=== PATIENT | male | born 1960 | race Caucasian/White ===

== ENCOUNTER 2018-12-14 19:42 | Inpatient (IN) ==
[2018-12-14] MEDS ORDERED: DEBROX OTIC DROPS RIGHT EAR ONE (19:54)
[2018-12-14] MEDS ORDERED: APRESOLINE IV ONE (20:13)
[2018-12-14] MEDS ORDERED: VANCOMYCIN 1 GM/NS 1 GM/250 ML IVPB IV ONE (20:20)
[2018-12-14] MEDS ORDERED: ROCEPHIN 1 GM in NS 50 ML IV ONE (20:20)
--- NOTE | 2018-12-14 20:27 | Diag Imaging Result Doc PS360 ---
EXAM: CHEST-2 VIEWS 12/14/2018 HISTORY: sepsis TECHNIQUE: PA and lateral chest COMMENT: There are no previous studies. There are platelike opacities in the right middle lobe and left lower lobe. The heart size is at the upper limits of normal. IMPRESSION: Bilateral atelectasis. Electronically signed by Robby Sosa 12/14/2018 8:24 PM
[2018-12-14 21:02] LABS: BASO# 0.03 X1000 (0.0-0.2); BASO% 0.2 % (0.0-0.8); EOS# 0.22 X1000 (0.0-0.7); EOS% 1.2 % (0.0-10.0); HEMATOCRIT 24.2 % (42.0-52.0); HEMOGLOBIN 8.1 g/dL (14.0-18.0); IMM GRAN# 0.07 X1000 (0.0-0.04); IMM GRAN% 0.4 % (0.0-0.5); LYMPH# 2.88 X1000 (1.2-3.4); LYMPH% 15.4 % (20.5-51.1); MCH 32.1 PG (27-31); MCHC 33.5 g/dL (33-37); MPV 11.2 FL (7.4-10.4); NEUT# 14.04 X1000 (1.4-6.5); NEUT% 74.8 % (42.2-75.2); PLT 243 X1000 (130-400); RBC 2.52 XMIL (4.7-6.1); RDW 12.1 % (11.5-14.5); WBC 18.74 X1000 (4.8-10.8)
[2018-12-14] MEDS ORDERED: OFIRMEV 1000 MG/ISOTONIC SOLN 1,000 MG/100 ML BOTTLE IV ONE (21:03)
--- NOTE | 2018-12-14 21:12 | Diag Imaging Result Doc PS360 ---
EXAM: CT ABDOMEN/PELVIS W/O CONTRAST 12/14/2018 HISTORY: Bloodyperitoneal fluid afterintrabdominal procedur TECHNIQUE: This exam was performed using automated exposure control, adjustment of mA or kV according to patient size, and/or use of iterative reconstruction technique. COMMENT: There are no previous studies available for comparison. There are calcifications in the left anterior descending and circumflex coronary arteries. There is platelike opacity in the right middle lobe and the left lower lobe consistent with atelectasis. The spleen is not enlarged. There is massive retroperitoneal and mesenteric adenopathy, some nodes exceeding 3 cm in size. There are numerous surgical clips in the retroperitoneum from the level of the celiac artery caudally to below the kidneys. There is a peritoneal dialysis catheter present in the right anterior pelvis. There is a mesh in the anterior abdominal wall at the level of the umbilicus. There is no evidence of bowel obstruction. There is a mass in the mesentery to the right side of the midline on image 91 which contains some gas and apparent fluid. This measures at least 6.6 cm in diameter. The possibility of an abscess cannot be excluded, however it is possible this is simply due to necrosis. There is a large cyst in the upper pole of the left kidney. There is atrophy anteriorly in the right kidney lower pole. There is no evidence of hydronephrosis or stones. There are stones in the gallbladder. There is no evidence of acute bony disease. IMPRESSION: Adenopathy as described. Necrotic versus suppurated mesenteric latasha mass. Electronically signed by Robby Sosa 12/14/2018 9:09 PM
[2018-12-14 21:26] LABS: URINE SOURCE CLEAN CATCH
[2018-12-14 21:38] LABS: BODY FLUID SOURCE PERITONEAL FLUID; WBC BF 7678 /cumm
[2018-12-14 21:39] LABS: MONOS 16 %; POLYS 84 %
[2018-12-14 21:39] LABS: ALB/GLOB RATIO 1.2; ALBUMIN 3.2 g/dL (3.5-5.0); CALCIUM 9.8 mg/dL (8.8-10.2); CREATININE 9.2 mg/dL (0.7-1.2); POTASSIUM 4.9 mmol/L (3.5-5.1); TOTAL BILIRUBIN 0.27 mg/dL (0.20-1.00); TOTAL PROTEIN 5.8 g/dL (6.3-8.3)
[2018-12-14 21:51] LABS: BILIRUBIN URINE NEGATIVE (NEGATIVE); BLOOD URINE MODERATE (NEGATIVE); COLOR YELLOW; GLUCOSE URINE 500 mg/dL (NEGATIVE); KETONE URINE NEGATIVE (NEGATIVE); LEUKOCYTES URINE NEGATIVE (NEGATIVE); NITRITE URINE NEGATIVE (NEGATIVE); PH URINE 6.5; PROTEIN URINE 300 mg/dL (NEGATIVE); SP GRAVITY URINE 1.006; TURBIDITY URINE CLEAR (CLEAR); UROBILINOGEN URINE NORMAL (NORMAL)
[2018-12-14 21:52] LABS: UR EPITHELIAL CELLS <10 /HPF (<10); URINE BACTERIA NEGATIVE /HPF; URINE RBC <10 /HPF (<10); URINE WBC <10 /HPF (<10)
[2018-12-14] MEDS ORDERED: DILAUDID IV ONE (22:05)
[2018-12-14] MEDS ORDERED: ZOFRAN IV ONE (22:06)
--- NOTE | 2018-12-14 22:32 | PROVIDER DOCUMENTATION ---
This chart was entered by Heather Tipton Scribe, acting as scribe for Ben Moctezuma MD. HPI-General Adult - General Chief Complaint: Abdominal Pain Stated Complaint: FEVER Time Seen by Provider: 12/14/18 19:55 Source: patient Allergies/Adverse Reactions: Patient Allergies Allergy/AdvReac Type Severity Reaction Status Date / Time levofloxacin [From Levaquin] Allergy RASH Verified 12/14/18 19:50 Penicillins Allergy RASH Verified 12/14/18 19:50 tramadol AdvReac NAUSEA/VOMI Verified 12/14/18 19:50 TING Home Medications: Home Medication List Medication Instructions Recorded Confirmed Last Taken Type ATORVAstatin [Lipitor] 20 mg PO HS 12/24/17 12/14/18 12/26/17 22:00 History 20 Amlodipine [Norvasc] 10 mg PO DAILY 12/24/17 12/14/18 12/27/17 06:00 History 10 Carvedilol 6.25 mg PO BID 12/24/17 12/14/18 12/27/17 06:00 History 6.25 Fenofibrate [Tricor] 145 mg PO DAILY 12/24/17 12/14/18 12/26/17 05:00 History 145 Furosemide [Lasix] 40 mg PO BID 12/24/17 12/14/18 12/26/17 05:00 History 40 Insulin Aspart [Novolog] 0 unit SQ DIRECTED 12/24/17 12/14/18 Unknown History Modafinil 2 tab PO QAM 12/24/17 12/14/18 12/26/17 05:00 History 2 Omeprazole 20 mg PO HS 12/24/17 12/14/18 12/26/17 22:00 History Subcutaneous Insulin Pump [Insulin 1 each MC DAILY 12/24/17 12/14/18 Unknown History Pump] TRANDOLApril [Mavik] 4 mg PO DAILY 12/24/17 12/14/18 Unknown History Hydrocodone/APAP 10 mg/325 mg 1 ea PO Q6H PRN PRN #20 tab 12/27/17 12/14/18 Unknown Rx [[place]-10] Armodafinil 250 mg PO DAILY 12/14/18 12/14/18 Unknown History Calcitriol 0.5 mcg PO DAILY 12/14/18 12/14/18 Unknown History Cinacalcet HCl [Sensipar] 1 tab PO DAILY 12/14/18 12/14/18 Unknown History Ferric Citrate [Auryxia] 210 mg PO AC 12/14/18 12/14/18 Unknown History Losartan Potassium 100 mg PO DAILY 12/14/18 12/14/18 Unknown History Magnesium Oxide 400 mg PO DAILY 12/14/18 12/14/18 Unknown History Ondansetron [Ondansetron Odt] 4 mg PO PRN PRN 12/14/18 12/14/18 Unknown History - History of Present Illness -Gen Adult Nature of Presenting Problems: Pt is 58/M perotoneal dialysis pt presenting to the ED w/ fever, lower back pain that is more on the R side and some nausea. Pt sts that last Saturday he had a needle guided biopsy and has been draining blood out of perotoneal fluid. Pt sees Dr. Kimble for treatments. hx of IDDM, HTN, Renal failure, testicular cancer Location of Pain/Injury: reports: back (lower back, R sided predominantly) Pain Radiation: reports: no radiation Quality of Pain: reports: dull Severity: reports: moderate Onset/Duration: reports: gradual Timing: reports: still present, getting worse Context/Activities at Onset: reports: none Modifying Factors: improves with: nothing Associated Symptoms: reports: cough, fever/chills, nausea. denies: shortness of breath, vomiting Similar Symptoms Previously?: No Recently seen or treated by another doctor?: No Review of Systems - Adult - REVIEW OF SYSTEMS - ADULT Constitutional: reports: fever (100.5) Eyes: reports: no symptoms reported Ears, Nose, Mouth & Throat: reports: no symptoms reported Cardiovascular: reports: no symptoms reported. denies: chest pain Respiratory: reports: cough Gastrointestinal: reports: nausea. denies: abdominal pain, diarrhea, vomiting Musculoskeletal: reports: back pain Integumentary: reports: no symptoms reported Neurological: reports: no symptoms reported. denies: dizziness/vertigo, headache/migraines Psychiatric: reports: no symptoms reported Hematologic/Lymphatic: reports: no symptoms reported Allergic/Immunologic: reports: no symptoms reported All Other Systems: Reviewed and Negative Past History - Adult - PAST MEDICAL HISTORY-ADULT Review of Records: reports: Old Records Reviewed, Nursing Assessment Review, Medications Reviewed, Social history reviewed & non-contributory. Cardiovascular: reports: HTN Respiratory: reports: cancer Gastrointestinal: reports: denies history Genitourinary: reports: cancer (testicular cancer at age 18) Musculoskeletal: reports: denies history Neurological: reports: denies history Psychiatric: reports: denies history Endocrine/Immune: reports: Diabetes (insulin pump) Diabetes controlled by:: Insulin Dependent (insulin pump) Other Conditions: reports: denies history - SOCIAL HISTORY Smoking: denies, non-smoker Substance Use: none/never Alcohol Use Frequency: once a month Living Situation: family Physical Exam-General - PHYSICAL EXAM-ADULT Initial Vital Signs Reviewed: Yes - CONSTITUTIONAL General Appearance: appears well, alert, no apparent distress, other (pale) - EYES Eyes: PERRL/EOMI, pink conjunctivae - HEAD, EARS, NOSE, MOUTH & THROAT HENMT: normocephalic/atraumatic, moist mucous membranes, normal ENT inspection, TMs normal, pharynx normal - NECK Neck: non-tender, full range of motion, supple, normal inspection - RESPIRATORY Respiratory: chest non-tender, lungs clear, normal breath sounds - CARDIOVASCULAR Cardiovascular: regular rate, rhythm - GASTROINTESTINAL (ABDOMEN) Abdominal Exam: normal bowel sounds, distended (slightly), tenderness (tender to palpation only around site of dialysis tubing) - MUSCULOSKELETAL Back Exam: normal inspection, no CVA tenderness, no vertebral tenderness Extremity: normal range of motion, non-tender, normal gait, normal inspection - SKIN Integumentary: normal color, warm/dry - NEUROLOGIC Neurologic: grossly normal - PSYCHIATRIC Psych/Mental Status: normal mood/affect, normal thought content, normal thought process, oriented x 3 Progress - PLAN OF CARE/RESULTS Progress/Plan/Lab Results: Vital Signs - 8 hr 12/14/18 19:45 Temperature 100.5 F H Pulse Rate 95 H Respiratory Rate 20 Blood Pressure 179/74 O2 Sat by Pulse Oximetry 96 Orders Category Date Time Status cxr [CHEST-2 VIEWS] [RAD] Stat Exams 12/14/18 20:13 Ordered BLOOD CULTURE [BLDCUL] Stat Lab 12/14/18 20:12 Uncollected CBC WITH ELECTRONIC DIFF [HEME] Stat Lab 12/14/18 20:12 Uncollected CMP [COMPREHENSIVE METABOLIC PANEL] [CHEM] Stat Lab 12/14/18 20:12 Uncollected LACTATE, PLASMA [CHEM] Stat Lab 12/14/18 20:12 Uncollected Result Diagrams: 12/14/18 20:32 12/14/18 20:32 - XRAY 1 XRAY: Bilateral XRAY Study: Chest Impression: Abnormal (IMPRESSION: Bilateral atelectasis. Electronically signed by Robby Sosa 12/14/2018 8:24 PM 12/14/182023 Interpreting Physician: Robby Sosa MD Dictated Date/Time: 12/14/182023) - CONSULTS/PCP/HOSPITALIST Notification #1 *Consult/PCP/Hospitalist*: Dr. Kimble Time Discussed: 20:15 Reason/Comments: admit to ED for vancomycin and rocephin IV Consult Disposition: Admit #2 Consult: Dr. Solomon Time Discussed: 22:31 Consult Disposition: Admit (Hx, PE and patient care discussed, accepted.) Departure - Departure Date of Disposition Decision: 12/14/18 Time of Disposition Decision: 22:29 DIAGNOSIS: Sepsis Qualifiers: Sepsis type: sepsis due to unspecified organism Qualified Code(s): A41.9 - Sepsis, unspecified organism Back pain Qualifiers: Back pain location: low back pain Chronicity: acute Back pain laterality: right Sciatica presence: without sciatica Qualified Code(s): M54.5 - Low back pain Disposition: ADMITTED INPATIENT 09 Certified Medical Emergency: Emergent Condition: Stable Referrals and Follow-Ups: Leo Chambers MD [Primary Care Provider] - - Critical Care Note This patient required my direct & personal management of CC.: No Attestation - Physician/ CAYDEN Attestation Patient care was provided by Advanced Practice Provider:: No The physician spent face to face time with patient:: Yes Advanced Practice Provider documentation review:: Supervising physician onsite and consulted in the evaluation and care of this patient. The physician did have a face to face encounter with the patient. This chart was documented by the indicated scribe, (Heather Tipton Scribe) and accurately reflects the services I performed and decisions made by me, Ben Blas MD, as attested by the provider's signature.
[2018-12-14] MEDS ORDERED: FLAGYL 500 MG/NS 500 MG/100 ML IVPB IV ONE (22:56)
[2018-12-15] MEDS ORDERED: ZOFRAN ODT PO PRN (00:05)
[2018-12-15] MEDS ORDERED: ZOFRAN IV PRN (00:05)
[2018-12-15] MEDS ORDERED: BASAGLAR SUBQ ONE (00:05)
[2018-12-15] MEDS ORDERED: VANCOMYCIN IV PER PHARMACY MISC SCH (00:05)
--- NOTE | 2018-12-15 00:17 | HISTORY AND PHYSICAL ---
TREATING PHYSICIAN: Arnulfo Chambers MD. PRIMARY CARE PHYSICIAN: Bernice Montanez MD. REASON FOR ADMISSION: A 5-day history of bloody peritoneal fluid. A 1-day history of fever and chills. HISTORY OF PRESENT ILLNESS: Mr. Naveed Agosto is a 58-year-old man with a past medical history of insulin-requiring diabetes with nephropathy, hyperlipidemia, hypertension, prior history of bladder cancer and testicular cancer. He underwent lymph node biopsy 5 or 6 days ago, and the pathology report showed that he was diagnosed with a lymphoma type unknown. He comes in today because since the day he has had this biopsy he has been having blood in his peritoneal dialysis catheter. The first day was the worst with 250 mL of bright red blood. Since then he has been having consistently blood-tinged peritoneal fluid. Today things got a little worse when he was having fever and chills, a temperature of 102, notable chills. Oddly enough he does not have any profound abdominal pain. The pain that he has is vague, 2/10, a dull achy pain around the peritoneal site, with no specific aggravating or relieving factors, it is constant. He also complains of pain about 4 cm below the lymph node biopsy insertion site, and that too is also the same quality low dull achy pain, nonradiating. He denies any diarrhea or altered bowel movements. No nausea or vomiting at this time. Denies any cardiorespiratory complaints other than a persistent nagging dry cough. He denies any shortness of breath or chest pain of an anginal type quality. No change in urinary habits. No PND or orthopnea. No leg swelling. No polyuria or polydipsia. No weight loss. REVIEW OF SYSTEMS: A 12 system review was done. Positive findings per HPI. No focal neurological deficits. No heat intolerance or tremors. ALLERGIES: Levaquin, penicillin, and tramadol. HOME MEDICATIONS: The patient is on amlodipine 10 mg daily, armodafinil, ferric citrate 210 mg q.a.c., calcitriol 0.5 mg daily, Coreg 6.25 mg b.i.d., insulin pump, Lasix 40 mg b.i.d., Lipitor 20 mg at bedtime, losartan 100 mg daily, magnesium oxide 400 mg daily, Mavik 4 mg daily, modafinil 400 mg a day q.a.m., NovoLog p.r.n. subcutaneous, omeprazole 20 mg at bedtime, Zofran 4 mg q4 prn Sensipar 1 tablet daily, Tricor 45 mg daily, hydrocodone 10 mg q.6 hours p.r.n. SURGICAL HISTORY: He has had radical retroperitoneal lymph node dissection relating to his testicular cancer, bladder cancer excision, right shoulder surgery. He has had a peritoneal dialysis catheter placed. FAMILY HISTORY: Breast cancer in her mother. Diabetes in brother. SOCIAL HISTORY: He does not smoke, drink, or use illicit drugs. and lives with . He works as a [employer]. LABORATORY DATA: White count 69709, H H 8 and 24. Platelets 243,000, with normal differential. BUN is 89, creatinine is. 9.2 glucose is 326, bicarbonate is 19, anion gap is 18, albumin is 3.2, lactate is normal. Urinalysis showed 300 protein, glucose 500, moderate blood. Gram stain showed 2+ white cells, no bacteria. Chest film bilateral atelectasis. The patient has been necrotic versus suppurative mesenteric latasha matted lymph nodes,and there are stones in the gallbladder. There is also calcifications of the coronary arteries. PHYSICAL EXAMINATION: VITAL SIGNS: Blood pressure is 140/78, heart rate is 95, respirations is 20, temperature is 100.5, O2 saturations is 92% on room air. GENERAL: Mr. Naveed Agosto is a 58-year-old male who is not in acute distress. He is A and O x3. Normal mood and affect. HEENT: Head is normocephalic and atraumatic. Eyes, YAW, EOMI. Anicteric mildly pale. Exam is grossly normal. NECK: Supple. No JVD or carotid bruit. No thyromegaly. No cervical, supraclavicular, or axillary lymph nodes. CHEST: Clear to auscultation. Good air entry both lung henry. CARDIOVASCULAR: First and second sounds heard. No gallops. ABDOMEN: Protuberant, soft. Mild diffuse tenderness most notably in the right lower quadrant an d right upper quadrant area, but no rebound or guarding. No mass or organomegaly. Bowel sounds are hypoactive. RECTAL: Deferred at this time. EXTREMITIES: The patient has slightly diminished pulses in distally lower extremities. Regular rhythm that is symmetrical. No clubbing or peripheral cyanosis. No edema. NEUROLOGICAL: No gross focal deficits. SKIN: Intact. No breakdown, lesion, erythema. Peritoneal tunneled catheter dialysis site is clean. No surrounding erythema or tenderness or expression of any exudative material. MUSCULOSKELETAL: Exam is grossly normal. ASSESSMENT: 1. Probable peritonitis. 2. Lymphoma type unknown. 3. End-stage kidney disease. 4. Type 2 diabetes with nephropathy. 5. Coronary artery disease. 6. Hypertension. 7. Hyperlipidemia. 8. Sleep apnea versus narcolepsy. PLAN: The patient will be admitted per Dr. Chambers's request. We will start the patient on broad- spectrum antibiotics to cover Staphylococcus gram-negative and anaerobes intra- abdominally. Treat the patient symptomatically as needed. For now hold off on insulin pump unless okayed by Dr. Chambers. Start the patient on sliding scale with or without long-acting insulin. The patient's blood pressure medications will be restarted. The patient does complain of protracted coughing but if symptoms persist I would recommend a noncontrast CT of the chest to rule out development of a pneumonia in which case antibiotics will need to be shifted and coverage for atypical antibiotics may need to be considered. cc: MD Leo Julio MD Laverne J. Hoover MTDD
[2018-12-15] MEDS: NORCO-10 PO PRN ×4 (02:01→22:47)
[2018-12-15] MEDS ORDERED: FLAGYL 500 MG/NS 500 MG/100 ML IVPB IV SCH (05:30)
[2018-12-15 06:43] LABS: BASO# 0.02 X1000 (0.0-0.2); BASO% 0.1 % (0.0-0.8); EOS# 0.14 X1000 (0.0-0.7); HEMATOCRIT 23.1 % (42.0-52.0); HEMOGLOBIN 7.7 g/dL (14.0-18.0); IMM GRAN# 0.06 X1000 (0.0-0.04); IMM GRAN% 0.4 % (0.0-0.5); LYMPH# 2.91 X1000 (1.2-3.4); LYMPH% 20.2 % (20.5-51.1); MCH 32.5 PG (27-31); MCHC 33.3 g/dL (33-37); MCV 97.5 FL (81-99); MONO# 0.83 X1000 (0.11-0.59); MONO% 5.8 % (1.7-9.3); MPV 10.8 FL (7.4-10.4); NEUT# 10.42 X1000 (1.4-6.5); NEUT% 72.5 % (42.2-75.2); PLT 220 X1000 (130-400); RBC 2.37 XMIL (4.7-6.1); RDW 12.1 % (11.5-14.5); WBC 14.38 X1000 (4.8-10.8)
[2018-12-15] MEDS: HUMALOG SUBQ SCH ×4 (06:51→22:48)
[2018-12-15] MEDS ORDERED: NON-FORMULARY MED (Ferric Citrate [Auryxia] 210 MG) PO SCH (07:00)
[2018-12-15 07:21] LABS: ALB/GLOB RATIO 0.8; ALBUMIN 2.9 g/dL (3.5-5.0); CALCIUM 9.4 mg/dL (8.8-10.2); CREATININE 9.3 mg/dL (0.7-1.2); MAGNESIUM 1.8 mg/dL (1.5-2.7); POTASSIUM 4.9 mmol/L (3.5-5.1); TOTAL BILIRUBIN 0.23 mg/dL (0.20-1.00); TOTAL PROTEIN 6.4 g/dL (6.3-8.3)
[2018-12-15] MEDS: NORVASC PO SCH ×2 (07:54→09:10)
[2018-12-15] MEDS: TESSALON PO SCH ×4 (07:54→21:19)
[2018-12-15] MEDS: MAG-OX PO SCH ×2 (07:54→09:12)
[2018-12-15] MEDS: COREG PO SCH ×3 (07:55→21:19)
[2018-12-15] MEDS: LASIX PO SCH ×3 (07:55→21:19)
[2018-12-15] MEDS: COZAAR PO SCH ×2 (07:55→09:11)
[2018-12-15] MEDS ORDERED: MODAFINIL PO SCH (09:00)
[2018-12-15] MEDS ORDERED: ARMODAFINIL 250 MG PO SCH (09:00)
[2018-12-15] MEDS: ROCALTROL PO SCH (09:10)
[2018-12-15] MEDS: SENSIPAR PO SCH (09:10)
[2018-12-15] MEDS ORDERED: MAXIPIME 1 GM in NS 50 ML IV SCH (09:15)
--- NOTE | 2018-12-15 10:47 | INFECTIOUS DISEASE CONSULT REP ---
DATE: 12/15/2018 CONCLUSION: The patient has gram-negative michael bacteremia. I think this originates from peritonitis which the patient is predisposed to get because he does peritoneal dialysis. It should be noted also that on the CAT scan, there is a mesentery mass which has gas and fluid in it, which also would seem to be infected also. RECOMMENDATIONS: I have switched the patient to cefepime 1 g IV every 24 hours and I put a consult in for Dr. Ramos to evaluate the mesenteric mass and see what he thinks needs to be done to it. DISCUSSION: The patient tells me that approximately 1 to 2 days ago, he started having fever and low back pain and flank pain as well. He also noticed that there was blood in the peritoneal fluid. The patient also had some nausea and dry heaves. His laboratory studies showed a CBC with a white count of 14,380, hemoglobin 7.7, and platelet count of 220,000. Creatinine is 9.3. GFR is 6. Liver function studies are normal. Urinalysis did not have any white cells or bacteria in it. Peritoneal fluid, white blood cell count was 7678 with 84% polymorphonuclears. CT scan of the abdomen and pelvis shows a massive retroperitoneal and mesenteric adenopathy, as well as a mass in the mesentery with gas and fluid in it. The chest x-ray shows bilateral atelectasis. Blood cultures, as mentioned above, are growing gram-negative rods. The patient's peritoneal fluid has been sent for culture, the results of which are still pending. PAST MEDICAL HISTORY/REVIEW OF SYSTEMS: Eyes and Ears: His vision and hearing are good. Neck: No stiffness. Respiratory: No cough or shortness of breath. GI: The patient did have, in the past 1 to 2 days, some nausea and dry heaves but that has cleared now. He is not having diarrhea. Genitourinary: The patient is not having any dysuria but he is having low back and flank pain. Neurologic: He is not having any seizures. He has not recently lost any motor or sensory function. Integument: No rashes. PREVIOUS HOSPITALIZATIONS AND OPERATIONS: He has had a lymph node biopsied and it was diagnosed as being due to sarcoidosis. He has had a right orchiectomy because of testicular cancer. He has had a hernia repair. He has had surgery on his right shoulder. He has had a peritoneal dialysis catheter placed. He also has, on his arm, a device that lets him read his glucose. He also has, on his abdominal wall, an abdominal insulin pump. MEDICAL DISEASES: He has sarcoidosis. He has end-stage renal disease for which he is on peritoneal dialysis. He has diabetes mellitus, hypertension, and hyperlipidemia. INFECTIOUS DISEASE HISTORY: The patient has had 2 or 3 episodes of pneumonia. FAMILY HISTORY: Positive for diabetes mellitus, hypertension, and cancer. [place]IAL HISTORY[place] . He has a dog as a pet. ALLERGIES: He is allergic to penicillin and Levaquin. Penicillin allergy is by hives but it should be noted that he has been on Rocephin and tolerated it well. With Levaquin, he has had a rash. HABITS: The patient does not smoke, drink alcoholic beverages, or abuse drugs. MEDICATIONS: His medication at home include the following: Norvasc, Lipitor, calcitriol, carvedilol, Sensipar, TriCor, ferric citrate, Lasix, hydrocodone, insulin, losartan, magnesium, omeprazole, ondansetron, a subcutaneous insulin pump, and Mavik. PHYSICAL EXAMINATION: Vital Signs: Temperature is 102.7 degrees, pulse 102, respirations 20, blood pressure 165/66. The patient is 5 feet 10 inches tall, weighs 197 pounds. General: This is an obese, middle-aged male. He appears to be in no acute distress. Head, Eyes, Ears, Nose, and Throat: He can hear my spoken words and see near objects. He does not have any white patches on his tongue. Neck: No pain with movement of his head. Thorax: No increased AP diameter. Lungs: Clear to auscultation. Cardiovascular: Regular heart rate. Abdomen: Soft and nontender. The patient has an insulin pump on the abdominal wall. The area is not erythematous. Extremities: The patient has a glucose monitor on his left arm. The site is not erythematous either. Neurologic: The patient is alert. He can ambulate. There is no tremor. His sensation is intact to touch. His memory as regarding his medical history is intact. Thank you for the consult. cc: Wilfrid Barahona MD
--- NOTE | 2018-12-15 11:13 | PROGRESS NOTE ---
DATE: 12/15/2018 SUBJECTIVE: Patient is seated on the chair. Not in any obvious distress. OBJECTIVE: Vital signs: Temperature is 102.7 degrees, pulse 102, respirations 20, blood pressure 160/66, oxygen saturation is 93%. HEENT: Atraumatic, normocephalic. Cardiovascular: S1, S2. Respiratory system: Has evidence of good air entry bilaterally. Abdomen: Full, nontender, no masses felt. Extremities: Trace edema in the lower extremities. Central nervous system: No obvious focal deficits noted. LABORATORIES: WBC is 14.38, hematocrit is 28.1 with a platelet count of 220,000. Sodium is 138, potassium is 4.9, pulse is 103, bicarb 20, BUN is 8, creatinine is 9.3. IMAGING: CT scan of the abdomen and pelvis shows evidence of adenopathy with necrotic mesenteric latasha mass. ASSESSMENT AND PLAN: 1. Peritoneal dialysis-related peritonitis. Follow up on final cultures of peritoneal fluid. Antibiotic management by Infectious Disease. 2. Recent diagnosis of lymphoma. The patient indicates that he was recently diagnosed as having lymphoma. He is not sure what type it is. CT of his abdomen and pelvis shows evidence of adenopathy, as well as a necrotic versus mesenteric latasha mass. Hematology-Oncology on-call consulted. 3. End-stage renal disease on hemodialysis. Continue peritoneal dialysis as recommended by Nephrology. 4. Diabetes mellitus. Continue blood sugar monitoring as well as sliding scale insulin. 5. Hypertension. Continue current antihypertensive regimen. 6. Hyperlipidemia. Continue lipid-lowering agent. 7. Deep vein thrombosis prophylaxis. Sequential compression devices. 8. Gastrointestinal prophylaxis. Proton pump inhibitor. cc: Jorgito Ramirez MD
[2018-12-15] MEDS: TYLENOL PO PRN (11:49)
[2018-12-15] MEDS: MAXIPIME 1 GM in NS 50 ML IV SCH (11:50)
--- NOTE | 2018-12-15 12:30 | NEPHROLOGY CONSULTATION ---
DATE: 12/15/2018 REASON FOR CONSULT: Chronic kidney disease stage 5D with assistance with medical management, rule out peritonitis. CONSULTING PHYSICIAN: Dr. Solomon. HISTORY OF PRESENT ILLNESS: Mr. Agosto is a 58-year-old, white male who is known to our outpatient services for peritoneal dialysis at home. He normally runs on the cycler at night. The patient had bloody peritoneal fluid over the last 5 days with a recent history of fever and chills over the last 24 hours prior to admission. The patient states he had recently undergone a lymph node biopsy 5 or 6 days ago at [facility] and was recently diagnosed with lymphoma, type unknown. He presented to [facility] with bright red blood to his peritoneal fluid with fever and chills, high temperature of 102 degrees with notable chills in the emergency room. The patient does deny any abdominal pain, dull, achy, noted to his PD exit site. He has no nausea, vomiting. No diarrhea. Nonradiating achy dull pain all over. No chest pain. No increased work of breathing. No increased lower extremity swelling. No recent cough. No exposure to people with the flu. No changes to his urinary habits. No hematochezia, hemoptysis, or hematuria. No lower extremity swelling. No recent weight loss. Due to these findings, the patient was admitted for further monitoring and evaluation. Again, he is vague in regards with his complaints. States that he was supposed to start a first evaluation treatment at [facility] in [place] today. Due to these findings, we will request him to be evaluated while here in the hospital. PAST MEDICAL HISTORY: Chronic kidney disease stage 5D with peritoneal dialysis treatment. He has had a history of cloudy PD fluid and has recently been on Fortaz and vancomycin. 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 PREVIOUS SURGICAL HISTORY: The patient has placement of dialysis tunneled catheter, radical retroperitoneal lymph node dissection relating to his testicular cancer, bladder cancer excision, right shoulder surgery. FAMILY HISTORY: Breast cancer in mother. Diabetes in brother. SOCIAL HISTORY: , lives with his spouse. 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 ALLERGIES: Allergies are listed as Levaquin, penicillin, and tramadol. HOME MEDICATIONS: Amlodipine, armodafinil, ferric citric, calcitriol, Coreg, Lasix, losartan, magnesium oxide, Mavik, modafinil, NovoLog, omeprazole, Zofran, Sensipar, Tricor, and hydrocodone. REVIEW OF SYSTEMS: Times 10 with pertinent positives listed above in the HPI. VITAL SIGNS: The patient's most recent vital signs, patient's last temperature 100, blood pressure 125/55, heart rate 94, respirations are 20. He is on room air. Last recorded saturation 97%. He has had 240 in p.o., nothing out per PD. He states that he drained dry with no PD fluid in his abdomen at this time. LABS: The patient's most recent chemistry, sodium of 138, potassium 4.9, chloride is 103, CO2 20, BUN 88, creatinine 9.3, glucose of 246, he has an anion gap of 15, his calcium is 9.4, albumin of 2.9. White count 14.38. This is down from 18.74. He has a hemoglobin of 7.7, hematocrit 23.1, with a platelet count of 220,000, positive for neutrophils, monocytes, immature granulocytes, and lymphocytes. PD fluid is still pending. PHYSICAL EXAMINATION: General: This is a 58-year-old, white male. He is currently resting quietly in bed. He appears in no acute distress. His skin is warm and dry. HEENT: Normocephalic, atraumatic. Conjunctivae are pale. He has YAW. Mucous membranes are dry. Neck: Supple. Trachea midline. No evidence of JVD. Cardiovascular: He has regular rate and rhythm. He has no murmur or gallop. Lungs: Clear to auscultation bilaterally. Equal excursion, on room air. Abdomen: Protuberant. PD catheter remains intact without redness or drainage. Positive bowel sounds present. No tenderness present. Genitourinary: Not inspected. He continues to void with dialysis assist. Extremities: No edema. No clubbing or cyanosis. Neurological: Alert and oriented x3. ASSESSMENT AND PLAN: 1. Chronic kidney disease stage 5D. Patient was drained dry. We will place a 2 L bag in for one exchange of 2.5%. We will wait for 2 hours and draw labs to send down for a peritoneal dialysis fluid cell count, Gram stain, and culture and sensitivity, even though the patient has already received a dose of Ancef and vancomycin overnight. 2. Electrolytes and acid-base balance. These are acceptable. 3. Anemia. This is low, has dropped since his hospitalization. 4. Newly diagnosed lymphoma, type unknown. We will consult Dr. Jen Razo to start patient's evaluation for possible treatments. 5. Possible peritonitis. The patient has been treated with Fortaz and vancomycin. We will also request Dr. Wilfrid Barahona for his input and possible further regards with treatment. 6. Leukocytosis. Again, with Dr. Wilfrid Barahona assisting in his care. I would like to thank you for allowing us to follow with this patient. Dictated by SILVIA Gordillo for Leo Chambers MD Face to face encounter, data reviewed, discussed with Lisy Kay on 12/15/18. I agree with the above assessment and plan of care. cc: SILVIA Gordillo MD [facility]
[2018-12-15 15:00] LABS: BODY FLUID SOURCE PERITONEAL FLUID
[2018-12-15 15:01] LABS: WBC BF 1097 /cumm
[2018-12-15 15:07] LABS: POLYS 81 %
[2018-12-15 15:08] LABS: MONOS 19 %
--- NOTE | 2018-12-15 17:08 | INFECTIOUS DISEASE CONSULT REP ---
DATE: 12/15/2018 ADDENDUM REPORT Following is addendum to the consult I did earlier today on Naveed Agosto. The patient recently underwent a lymph node biopsy approximately 5 to 6 days ago. The pathology report diagnosed the patient as having a lymphoma. Possibly this biopsy is related to the large mass that has gas and fluid in it. cc: Wilfrid Barahona MD
[2018-12-15] MEDS ORDERED: ROCEPHIN 1 GM in NS 50 ML IV SCH (20:30)
[2018-12-15] MEDS: LIPITOR PO SCH (21:19)
[2018-12-15] MEDS: PRILOSEC PO SCH (21:19)
[2018-12-16] MEDS: HUMALOG SUBQ SCH ×4 (06:28→21:49)
[2018-12-16 07:36] LABS: ALBUMIN 2.4 g/dL (3.5-5.0); CALCIUM 9.2 mg/dL (8.8-10.2); CREATININE 8.5 mg/dL (0.7-1.2); PHOSPHORUS 6.5 mg/dL (2.7-4.5); POTASSIUM 4.4 mmol/L (3.5-5.1)
--- NOTE | 2018-12-16 09:32 | NEPHROLOGY PROGRESS NOTE ---
DATE: 12/16/2018 TIME SEEN: 0710. SUBJECTIVE: Mr. Agosto is resting quietly in bed. Head of the bed is elevated. He remains attached to his peritoneal dialysis cycler. Denies any discomfort. States he is feeling a little bit better. OBJECTIVE: Vital Signs: Temperature 98.6, blood pressure 120/57, heart rate 70, respirations 16. He is on room air. Last recorded saturation is 92%. He has had 400 in. He has had 300 out to void. Laboratory Data: Sodium 138, potassium 4.4, chloride is 102, CO2 25, BUN 86, creatinine 8.5, glucose 197, anion gap is 11, calcium is 9.2, phosphorus 6.5, albumin is 2.4. The patient had a previous hemoglobin of 7.7 with a white count of 14.38. Sedimentation rate 144. Physical Examination: General: This is a 58-year-old, white male resting quietly in bed. His skin is warm and dry. HEENT: Normocephalic, atraumatic. Conjunctivae are pale pink. He has YAW. Mucous membranes are dry. Neck: Supple. Trachea midline. No evidence of JVD. Cardiovascular: Regular rate and rhythm without murmur or gallop. Lungs: Clear to auscultation bilaterally. Equal excursion, on room air. Abdomen: Distended, tight. PD fluid remains intact. Positive bowel sounds. Genitourinary: Not inspected. Minimal void with dialysis assist. Extremities: Have no edema. No clubbing or cyanosis. Neurological: Alert and oriented x3. ASSESSMENT AND PLAN: 1. Chronic kidney disease stage 5D. The patient currently has his peritoneal dialysate in per his cycler from the night. We will check a cell count today. Patient had been on Ancef and vancomycin with peritoneal dialysis fluid currently pending. The patient is also bacteremic with blood cultures indicating a gram-negative michael. Sensitivity is still pending. Cell count is improving appropriately with antibiotics so no indication for catheter removal. rg 2. Electrolytes and acid-base balance. These are acceptable. 3. Anemia. This is stable. 4. Lymphoma, Dr. Jen Razo consulted. 5. Bacteremia. Dr. Wilfrid Barahona and Dr. Canales are following. The patient is now on Maxipime. I would like to thank you for allowing us to follow with this patient. Dictated by SILVIA Gordillo for Leo Chambers MD Face to face encounter, data reviewed, discussed with Lisy Kay on 12/16/18. I agree with the above assessment and plan of care. cc: SILVIA Gordillo MD [facility]
[2018-12-16] MEDS ORDERED: PATIENT'S OWN MED PO PRN (10:44)
--- NOTE | 2018-12-16 11:45 | INFECTIOUS DISEASE PROGRESS NO ---
DATE: 12/16/2018 PRESENT ILLNESS: The patient has a gram-negative michael bacteremia. I thought it could have originated from his peritoneum. However, fluid taken from the peritoneum shows no growth. There is 1 mass in the peritoneum, though, that has gas and fluid in it, and possibly this mass may be the source of the bacteremia. MEDICATIONS: The patient is on cefepime pending the identification and susceptibility testing of the gram-negative michael in the blood stream. PHYSICAL EXAMINATION: Vital Signs: Temperature is 98.7 degrees, pulse 72, respirations 16, blood pressure 151/73. General: This is a somewhat ill-appearing middle-aged male. He is in no acute distress. Head, Eyes, Ears, Nose, and Throat: He can hear my spoken words and see near objects. He does not have any white patches on his tongue. Neck: No pain with movement of his head. Lungs: Clear to auscultation. Cardiovascular: Heart rate is regular. Abdomen: Soft and nontender. Thorax: The patient has an insulin pump present at the site. There is no erythema. The patient also has a peritoneal dialysis catheter in place, and at that site also, there is no erythema or purulence noted. Neurologic: Patient is alert. He ambulates in the spain well. There is no tremor. DIAGNOSTIC STUDIES: The patient's creatinine is 8.5, GFR is 6. There is no CBC for today. The peritoneal fluid as mentioned above has a negative culture. The patient's blood cultures are growing gram-negative rods, which have not yet been identified. There is no new radiographic study today. ASSESSMENT AND PLAN: The patient has a gram-negative michael bacteremia, the exact origin of which is uncertain to me. My plan is to treat the patient with cefepime pending the identification and the susceptibility of the organism. I am repeating the patient's blood cultures tomorrow, and day 1 of treatment with the antibiotic will be the first day that the patient's repeat blood cultures are sterile. After the patient is finished with his 2 weeks of IV antibiotics, consideration might be that if the organism is susceptible to an oral antibiotic that we put the patient on a on a low dose of the antibiotic with the idea of trying to suppress any future bacteremias from wherever the organism came. PATIENT'S COMORBIDITIES: Include the followin. The patient has sarcoidosis. 2. End-stage renal disease, for which he is on peritoneal dialysis. 3. Diabetes mellitus. 4. Most recently diagnosed, the patient has a lymphoma. cc: Wilfrid Barahona MD
[2018-12-16 12:37] LABS: BODY FLUID SOURCE PERI DIAL FLUID; WBC BF 391 /cumm
[2018-12-16 12:38] LABS: MONOS 47 %; POLYS 53 %
[2018-12-16] MEDS: PATIENT'S OWN MED PO SCH ×2 (12:54→18:21)
[2018-12-16] MEDS: COREG PO SCH ×2 (12:54→21:48)
[2018-12-16] MEDS: SENSIPAR PO SCH (12:55)
[2018-12-16] MEDS: TESSALON PO SCH ×3 (12:55→21:47)
[2018-12-16] MEDS: ROCALTROL PO SCH (12:56)
[2018-12-16] MEDS: MAG-OX PO SCH (12:57)
[2018-12-16] MEDS: NORVASC PO SCH (12:57)
[2018-12-16] MEDS: COZAAR PO SCH (12:57)
[2018-12-16] MEDS: LASIX PO SCH ×2 (12:57→21:47)
[2018-12-16] MEDS: MAXIPIME 1 GM in NS 50 ML IV SCH (14:03)
[2018-12-16] MEDS ORDERED: NS 500 ML ONE (14:20)
--- NOTE | 2018-12-16 15:17 | PROGRESS NOTE ---
DATE: 12/16/2018 SUBJECTIVE: This morning, Mr. Agosto refers to be doing fairly okay. Denies any new complaints. He still refers that the peritoneal fluid seems to be slightly blood-tinged. was at the bedside at the time of the encounter. OBJECTIVE: Vital Signs: Blood pressure is 132/62, pulse is 79, respirations are 18, temperature is 99.1 degrees. The patient was saturating about 94% on room air. The patient has been afebrile since yesterday. T-max was 102.7 yesterday at 0728. General Examination: Mr. Agosto is a 58- year-old, male. He is in bed, no distress. HEENT: Mucosa is pink and moist. Anicteric. Acyanotic. Neck: Supple. Chest: Good air entry bilaterally. There were no crepitations, no rhonchi. Cardiovascular: Regular rate and rhythm. No murmurs, no rubs, no gallops. GI: Abdomen is soft, is distended. There is a peritoneal dialysis catheter in place. No tenderness. No rebound. No guarding. Extremities: No pedal edema. 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 There is no focal neurological deficit. Laboratory Data: This morning, lab work has been reviewed. Chemistry is consistent with renal failure. Imaging Studies: From admission did show necrotic versus suppurative mesenteric latasha mass. ASSESSMENT: 1. Sepsis on presentation. The source of the infection is questionable, presumably coming from the catheter related peritonitis versus the necrotic versus a suppurated mesenteric latasha mass. The patient's blood culture is positive for gram-negative michael. We are still awaiting the identification and sensitivity. 2. Peritoneal catheter related peritonitis. The patient is on cefepime. Infectious disease and nephrology are on board. 3. History of recently diagnosed lymphoma, type is unknown, pending the pathology report from [facility]. The patient has been referred to follow up with Dr. Whyte. There is pending bone marrow biopsy that had been ordered by oncology. 4. Endstage renal disease, on peritoneal dialysis. Nephrology is on board. Patient continues to have dialysis. 5. History of sarcoidosis. 6. Remote history of testicular cancer and bladder cancer in the past. 7. Normocytic anemia. We will check the patient's iron status. cc: Elmo Syed MD
[2018-12-16] MEDS ORDERED: VANCOMYCIN 1 GM/NS 1 GM/250 ML IVPB IV SCH (20:00)
--- NOTE | 2018-12-16 21:31 | HEMO/ONC CONSULTATION ---
DATE: 12/16/2018 REASON FOR CONSULT: Recently diagnosed lymphoma, unknown type. HISTORY OF PRESENT ILLNESS: Mr. Agosto is a pleasant 58-year-old gentleman with a history of bladder cancer, testicular cancer and endstage renal disease. He was recently evaluated at [facility] for transplant purposes, at which time he did undergo imaging which revealed incidental findings of retroperitoneal and mesenteric lymphadenopathy. He underwent lymph node biopsy approximately 1 week prior to admission on 12/04/2018, indicating pathology revealing lymphoma of unknown type. He was scheduled for outpatient evaluation and consultation with [facility] office today. Unfortunately, following the biopsy the patient did develop bright red blood from his abdominoperitoneal dialysis catheter drain. Bleeding was persistent, minimal, and monitored as an outpatient until development of additional symptoms regarding fever and chills with a maximum temperature of 102 degrees on 12/13/2018. He reported to the emergency department for further evaluation, and was admitted on 12/14/2018 for further evaluation and treatment purposes. At that time, he did complain of vague, generalized, dull abdominal pain around the peritoneal catheter site, estimated 2/10 pain level. He denied any nausea, vomiting, constipation or diarrhea. ALLERGIES: Levaquin, penicillin and tramadol. PAST MEDICAL HISTORY: 1. Endstage renal disease, on dialysis. Recently evaluated for transplant. 2. Hyperlipidemia. 3. Hypertension. 4. Diabetes. 5. Bladder cancer. 6. Testicular cancer. PAST SURGICAL HISTORY: Peritoneal dialysis catheter placement, excision of bladder cancer, right shoulder surgery, and radical retroperitoneal lymph node dissection related to testicular cancer. FAMILY HISTORY: Mother, breast; brother, diabetes. SOCIAL HISTORY: Tobacco: None. Alcohol: None. Illicit substance: None. LABORATORY DATA: WBC 14.38, hemoglobin 7.7, hematocrit 23.1, platelet count 220,000. Sodium 138, potassium 4.9, chloride 103, CO2 is 20, BUN 88, creatinine 9.3, glucose 246. DIAGNOSTIC DATA: CT of the abdomen and pelvis without contrast on 12/14/2018 reveals massive retroperitoneal and mesenteric adenopathy. There is also a mass in the mesentery to the right side of the midline containing some gas and fluid measuring at least 6.6 cm; uncertain if abscess versus necrotic mass. REVIEW OF SYSTEMS: Twelve-point review of systems except as noted in HPI. PHYSICAL EXAMINATION: General: Mr. Agosto is a pleasant 58-year-old gentleman. No acute distress. HEENT: Atraumatic, normocephalic. PERRL. EOMI. Neck: Supple. Heart: S1, S2. Regular rate and rhythm. No murmur, gallop or rub. Chest: Bilateral breath sounds. Clear to auscultation. Abdomen: Soft, mild diffuse tenderness present. Bowel sounds hypoactive. Extremities: No cyanosis, clubbing or edema. Skin: Clean, warm, dry and intact. Peritoneal tunneled catheter for dialysis, with no erythema or tenderness. Musculoskeletal: The patient moves all extremities equal, following commands. Neurologic: Alert and oriented x4. No focal deficits. ASSESSMENT AND PLAN: 1. Massive retroperitoneal and mesenteric lymphadenopathy, with necrotic versus mesenteric latasha mass. Recent biopsy with pathology revealing unknown type of lymphoma, per patient. We will obtain pathology results, with further recommendations to follow. We will also complete evaluation with additional blood work including IgG, serum protein electrophoresis, beta-2 microglobulin, sedimentation rate and LDH, as well as CT of the chest with and without contrast. Recommendations for bone marrow biopsy pending resolution of acute issues. Again, further recommendations to follow pending review of all results pending. 2. Peritonitis. Antibiotics and management per Infectious Disease. 3. Endstage renal disease, on dialysis. Management per Nephrology, Dr. Chambers. 4. Diabetes type 2. Continue sliding scale insulin per primary team. 5. Coronary artery disease. Continue home medications. 6. Hypertension. Continue home medication per primary team. 7. Hyperlipidemia. Continue home medication per primary team. Thank you for the consultation. Further recommendations to follow pending additional results. Dictated by SILVIA Ryan for Harpreet Whyte MD cc: Harpreet Whyte MD
[2018-12-16] MEDS: PRILOSEC PO SCH (21:47)
[2018-12-16] MEDS: LIPITOR PO SCH (21:47)
[2018-12-16] MEDS: NORCO-10 PO PRN (22:56)
[2018-12-17] MEDS: HUMALOG SUBQ SCH ×2 (06:15→11:20)
[2018-12-17 06:47] LABS: BASO# 0.03 X1000 (0.0-0.2); BASO% 0.2 % (0.0-0.8); EOS# 0.37 X1000 (0.0-0.7); HEMATOCRIT 23.4 % (42.0-52.0); HEMOGLOBIN 7.7 g/dL (14.0-18.0); IMM GRAN# 0.09 X1000 (0.0-0.04); IMM GRAN% 0.7 % (0.0-0.5); LYMPH# 2.84 X1000 (1.2-3.4); LYMPH% 22.9 % (20.5-51.1); MCHC 32.9 g/dL (33-37); MCV 97.1 FL (81-99); MONO# 1.01 X1000 (0.11-0.59); MONO% 8.1 % (1.7-9.3); MPV 10.8 FL (7.4-10.4); NEUT# 8.08 X1000 (1.4-6.5); NEUT% 65.1 % (42.2-75.2); PLT 279 X1000 (130-400); RBC 2.41 XMIL (4.7-6.1); RDW 12.2 % (11.5-14.5); WBC 12.42 X1000 (4.8-10.8)
--- NOTE | 2018-12-17 06:56 | GENERAL SURGERY CONSULTATION ---
DATE: 12/17/2018 HISTORY OF PRESENT ILLNESS: Mr. Agosto is a pleasant 58-year-old, with end-stage renal disease, that I put a PD catheter in a year ago. Recently he was preparing for workup for transplant and underwent a CAT scan revealing extensive retroperitoneal adenopathy. He has a history of testicular cancer, with node dissection, as well as a history of bladder cancer. He underwent a percutaneous biopsy proving this adenopathy to be due to lymphoma. Subsequent to that he developed some bloody peritoneal fluid, back pain and chills, was admitted here and found to have Escherichia coli bacteremia. He had already been treated for some peritonitis as noted by cloudy peritoneal fluid. In the hospital he has improved with IV antibiotic therapy. His white count of his peritoneal fluid has descended daily. MEDICATIONS AT HOME: His medications at home were listed. ALLERGIES: He has an allergy to Levaquin, penicillin and tramadol. PAST SURGICAL HISTORY: As noted above. FAMILY HISTORY: Pertinent for diabetes and breast cancer. SOCIAL HISTORY: He denies smoking, drinking or illicit drugs. 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 He is . REVIEW OF SYSTEMS: As noted above. PHYSICAL EXAMINATION: Vitals: Afebrile. Heart rate 82. Blood pressure 95/65. Lungs: Bilateral breath sounds. Heart: Regular rate and rhythm. Abdomen: Soft. He is not particularly tender. PD catheter is noted. ASSESSMENT: Lymphoma of the retroperitoneum. The low-density area in one of the lymph nodes probably represents a necrotic node. I doubt that this represents the source of his E coli bacteremia. Additionally, his peritoneal fluid is clearing with antibiotic therapy. In view of the above findings, I did not feel compelled to remove his PD catheter or deal with any of the lymph nodes. I think we should leave well enough alone now. Once his lymphoma is defined then we will consider him for possible port placement if needed. I will continue to follow along and be available as needed. cc: Bryson Canales MD
[2018-12-17 07:15] LABS: IRON SATURATION 28 %; TIBC 144 ug/dL; TOTAL IRON 40 ug/dL (53-167); UNBOUND IRON 104 ug/dL (112-346)
[2018-12-17 07:19] LABS: ALBUMIN 2.8 g/dL (3.5-5.0); CREATININE 7.9 mg/dL (0.7-1.2); PHOSPHORUS 5.9 mg/dL (2.7-4.5); POTASSIUM 4.2 mmol/L (3.5-5.1)
[2018-12-17 07:47] VITALS: BP 154/75
[2018-12-17 07:47] LABS: FERRITIN 2222 ng/mL (30-400)
[2018-12-17] MEDS: NORVASC PO SCH (08:28)
[2018-12-17] MEDS: SENSIPAR PO SCH (08:28)
[2018-12-17] MEDS: TYLENOL PO PRN (08:28)
[2018-12-17] MEDS: ROCALTROL PO SCH (08:28)
[2018-12-17] MEDS: COZAAR PO SCH (08:29)
[2018-12-17] MEDS: LASIX PO SCH ×3 (08:29→08:32)
[2018-12-17] MEDS: COREG PO SCH (08:29)
[2018-12-17] MEDS: MAG-OX PO SCH (08:29)
[2018-12-17] MEDS: PATIENT'S OWN MED PO SCH ×2 (08:33→13:35)
--- NOTE | 2018-12-17 09:41 | NEPHROLOGY PROGRESS NOTE ---
DATE: 12/17/2018 Date Seen: 12/17/2018 Time Seen: 0700 SUBJECTIVE: Mr. Agosto is resting quietly in bed. States that he has been up walking the halls this morning. OBJECTIVE: His most recent vital signs temperature 98.5 degrees, blood pressure 135/65, heart rate 82 respirations 14 he is on room air. Last recorded saturation 98%. He has had 0 in he has had 400 mL recorded out. LABS: The patient's sodium is 136, potassium 4.2, chloride 99, CO2 23, BUN of 81 with a creatinine of 7.9, glucose of 190. The patient has an anion gap of 14, calcium is 9, phosphorus is 5.9, albumin of 2.8. The patient has an iron of 44, TIBC of 144, iron percent saturation of 28, ferritin of 2222, B12 754, folate 10.4. The patient has a white count of 12.42, hemoglobin 7.7, hematocrit 23.4 with a platelet count of 279,000. Blood cultures are currently pending for repeat. Previous blood cultures showed E coli in the blood. PHYSICAL EXAMINATION: General: This is a 58-year-old white male resting quietly in bed. He appears in no acute distress. Skin: Warm and dry. HEENT: Normocephalic, atraumatic. Conjunctiva is pale pink. He has YAW. Mucous membranes are dry. Neck: Supple. Trachea midline. No evidence of JVD. Cardiovascular: Regular rate and rhythm. He is without murmur or gallop. Lungs: Clear to auscultation bilateral. Equal excursion on room air. Abdomen: Slightly distended. PD fluid remains intact after last dwell for cycler. He has positive bowel sounds. Genitourinary: Not inspected. Minimal void with dialysis assist. Extremities: Have no edema. No clubbing or cyanosis. Neurological: He is alert and oriented x3. ASSESSMENT AND PLAN: 1. Chronic kidney disease stage 5D. The patient's peritoneal dialysis fluid continues to clear with IV antibiotics. We will repeat a cell count this a.m. Last cell count yesterday was down at 300. We will plan for his routine cycler treatment this evening. 2. Bacteremia. Patient is now being followed by Dr. Wilfrid Barahona. The patient is now on Maxipime. We will complete two more weeks as an outpatient. rg 3. Electrolytes and acid-base balance. These are acceptable. 4. Anemia this does remain stable over the last 72 hours with a hemoglobin of 7.7. 5. Lymphoma. Dr. Jen Razo was on board. We will defer for possible transfusion. I would like to thank you for allowing us to follow with this patient. Dictated by SILVIA Gordillo for Leo Chambers MD Face to face encounter, data reviewed, discussed with Lisy Kay on 12/17/18. I agree with the above assessment and plan of care. rg cc: SILVIA Gordillo MD [facility]
[2018-12-17 12:28] LABS: BODY FLUID SOURCE PERITONEAL FLUID; MONOS 46 %; POLYS 54 %; WBC BF 1052 /cumm
[2018-12-17] MEDS: MAXIPIME 1 GM in NS 50 ML IV SCH (13:43)
--- NOTE | 2018-12-17 13:55 | INFECTIOUS DISEASE PROGRESS NO ---
DATE: 12/17/2018 PRESENT ILLNESS: The patient has an E coli bacteremia. The origin of the bacteremia is uncertain to me. It does not appear that it came from the peritoneum because the peritoneal fluid is sterile. 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 MEDICATION: Currently the patient is getting cefepime intravenously. I have talked to Dr. Chambers, and he is going to arrange for cephalosporin to be given to the patient through his peritoneal dialysis. Levaquin PO would be good; however, the patient unfortunately is allergic to it. PHYSICAL EXAMINATION: Vital Signs: Temperature is 99.6 degrees, pulse 89, respirations 18, blood pressure 154/75. General: This is a somewhat ill-appearing, middle-aged male. He is obese. He is in no acute distress. Head, Eyes, Ears, Nose, and Throat: He can hear my spoken words and see near objects. He does not have any white coating on his tongue. Neck: There is no pain when he turns his head. Lungs: Clear to auscultation. Cardiovascular: Heart rate is regular. Abdomen: Soft and nontender. The peritoneal dialysis catheter site is not red or purulent. Neurologic: Patient is alert. He ambulates in the [place] well. There is no tremor. DIAGNOSTIC STUDIES: As mentioned above, the patient's blood culture grew E coli. The patient's IgG level was low at 470. CBC shows a white count of 12,420, hemoglobin 7.7, and platelet count 279,000. Creatinine is 7.9, GFR is 7. The patient's peritoneal fluid white blood cell count for the last one checked is 1052. Culture of the peritoneal fluid is negative as mentioned above. ASSESSMENT AND PLAN: 1. The patient has an Escherichia coli bacteremia. The repeat blood cultures have been drawn today. I will check them each day, and hopefully they will remain negative, but if they do turn positive, then we will have to modify our treatment of his bacteremia, but hopefully they will be negative. Dr. Chambers is going to order the antibiotic that will be put in the patient's peritoneal fluid for the next 2 weeks to treat the patient's bacteremia. 2. As regarding the patient's immunoglobulin deficiency, I talked with Dr. Whyte, and he is going to arrange for the patient to get IVIG on a monthly basis. Before the patient goes today, I am going to go ahead and give him 40 g of immune globulin prior to discharge. COMORBIDITIES: The 2 main ones are: 1. The patient has a lymphoma with an associated immunoglobulin deficiency. 2. The patient has an Escherichia coli bacteremia. FOLLOW-UP: I am requesting the patient to come to my office in 2 weeks. cc: Wilfrid Barahona MD MTDD
[2018-12-17] MEDS ORDERED: GAMUNEX-C 10% IV ONE (14:00)
--- NOTE | 2018-12-17 23:24 | DISCHARGE SUMMARY ---
ADMISSION DATE: 12/14/2018 DISCHARGE DATE: 12/17/2018 DISPOSITION: Home. FOLLOW-UP: 1. Dr. Barahona. 2. Dr. Razo. 3. Dr. Chambers. 4. Patient's PCP. CONSULTATION DURING THIS ADMISSION: 1. Infectious Disease was consulted, patient was seen by Dr. Barahona. 2. Nephrology was consulted, patient was seen by Dr. Chambers. 3. Hematology/Oncology was consulted, patient was seen by Dr. Whyte/Dr. Razo. 4. Surgery was consulted, the patient was seen by Dr. Canales. ADMISSION DIAGNOSES: 1. Probable peritonitis. 2. Lymphoma. 3. Endstage renal disease. 4. Diabetes type 2 with nephropathy. 5. Coronary artery disease. DIAGNOSIS AT TIME OF DISCHARGE: 1. Sepsis on presentation with Escherichia coli bacteremia. 2. Peritoneal dialysis catheter related peritonitis. 3. Recently diagnosed retroperitoneal lymphoma. 4. Endstage renal disease, on peritoneal dialysis. 5. History of sarcoidosis. 6. Remote history of testicular cancer and bladder cancer. 7. Normocytic anemia. 8. Immunoglobulin G deficiencies. DISCHARGE MEDICATIONS: 1. Amlodipine 10 mg daily. 2. Lipitor mg at bedtime. 3. Furosemide 40 mg b.i.d. 4. Carvedilol 6.25 b.i.d. 5. TriCor 145 p.o. daily. 6. Omeprazole 20 mg p.o. at bedtime. 7. Insulin pump. 8. Trandolapril 4 mg p.o. daily. 9. Cinacalcet 60 mg, 1 tablet p.o. daily. 10. Ferrous citrate 210 p.o. daily. 11. Losartan 200 mg p.o. daily. 12. Calcitriol 0.5 mcg p.o. daily. PRESENTING COMPLAINT: Bloody peritoneal fluid, a day history of fever and chills. HISTORY OF PRESENTING COMPLAINT: Mr. Agosto is a 58-year-old gentleman who is known to have end-stage renal disease on peritoneal dialysis. The patient went to [facility] for transplant evaluation. A CT scan of the pelvis was done, and they found a necrotic mesenteric lymph node. The patient underwent lymph node biopsy and subsequently afterwards, he said his peritoneal fluid during dialysis became bloody. The day prior to the admission, he had fever and chills. On presentation, he was noted to have a temperature of 102 degrees. He still also did have some mild abdominal discomfort. He was subsequently admitted for sepsis, likely from peritoneal catheter related peritonitis. HOSPITAL COURSE: Mr. Agosto was admitted to the medical floor. Peritoneal fluid was sent for analysis, which was consistent with peritonitis with WBCs of 7678, 84% was segments. Mr. Agosto was started on broad-spectrum antibiotics, and Nephrology and ID were consulted. During the hospital course, Mr. Agosto was also seen by Heme/Onc, there was an initial plan for him to do a bone marrow biopsy, but he has been advised to follow up with Dr. Radha Feldman at the [facility] in [place] for that procedure and other workup to be done on outpatient basis. Today, Mr. Agosto refers to feel a lot better. His current vitals are blood pressure is 154/75, pulse is 89, respirations is 18, temperature 99.6 degrees. He is clinically stable and asymptomatic at this point. He is okay for discharge and to follow up with the above stated physicians to continue with his regular care. He is also advised to follow up with Dr. Radha Feldman in [place] at [facility] for his newly diagnosed lymphoma work up. Time spent for discharge is 37 minutes. DISCHARGE INSTRUCTIONS: All the discharge instructions have been discussed with Mr. Agosto and he voiced understanding. Mr. Agosto will also be getting intraperitoneal antibiotics, which will be determined by Nephrology on outpatient basis. cc: MD Wilfrid Clarke MD Heather Shah, MD Reginald D. Gladish, MD
== END 2018-12-17 17:02 | disposition home or self-care (01) | DRG 919 ==
LOC: ED 19:42 → SUATTDRO 19:43 → 4N 19:43
PROVIDERS: ATTEND Internal Medicine
CPT/HCPCS: 71020; 71046; 74176; 80053; 80069; 81001; 82232; 82607; 82728; 82746; 82784; 82948; 83540; 83550; 83605; 83615; 83735; 84155; 84165; 85025; 85651; 86334; 87040; 87070; 87077; 87186; 87205; 89051; 96365; 96366; 96368; 96375; 99285; A9270; J0131; J0360; J0692; J0696; J1170; J1561; J1815; J2405; J3370; J7040; S0030; XXXXX

== ENCOUNTER 2019-03-10 01:33 | Inpatient (IN) ==
--- NOTE | 2019-03-10 02:13 | PROVIDER DOCUMENTATION ---
This chart was entered by Heather Tipton Scribe, acting as scribe for Lawanda Stratton MD. HPI-Abdominal Pain/GI Problem - General Chief Complaint: Abdominal Pain Stated Complaint: ABD PAIN/PERITONITIS Time Seen by Provider: 03/10/19 01:52 Source: patient Allergies/Adverse Reactions: Patient Allergies Allergy/AdvReac Type Severity Reaction Status Date / Time levofloxacin [From Levaquin] Allergy RASH Verified 12/14/18 19:50 Penicillins Allergy RASH Verified 12/14/18 19:50 tramadol AdvReac NAUSEA/VOMI Verified 12/14/18 19:50 TING Home Medications: Home Medication List Medication Instructions Recorded Confirmed Last Taken Type ATORVAstatin [Lipitor] 20 mg PO HS 12/24/17 12/14/18 12/26/17 22:00 History 20 Amlodipine [Norvasc] 10 mg PO DAILY 12/24/17 12/14/18 12/27/17 06:00 History 10 Carvedilol 6.25 mg PO BID 12/24/17 12/14/18 12/27/17 06:00 History 6.25 Fenofibrate [Tricor] 145 mg PO DAILY 12/24/17 12/14/18 12/26/17 05:00 History 145 Furosemide [Lasix] 40 mg PO BID 12/24/17 12/14/18 12/26/17 05:00 History 40 Insulin Aspart [Novolog] 0 unit SQ DIRECTED 12/24/17 12/14/18 Unknown History Omeprazole 20 mg PO HS 12/24/17 12/14/18 12/26/17 22:00 History Subcutaneous Insulin Pump [Insulin 1 each MC DAILY 12/24/17 12/14/18 Unknown History Pump] TRANDOLApril [Mavik] 4 mg PO DAILY 12/24/17 12/14/18 Unknown History Hydrocodone/APAP 10 mg/325 mg 1 ea PO Q6H PRN PRN #20 tab 12/27/17 12/14/18 Unknown Rx [Lincoln-10] Calcitriol 0.5 mcg PO DAILY 12/14/18 12/14/18 Unknown History Cinacalcet HCl [Sensipar] 1 tab PO DAILY 12/14/18 12/14/18 Unknown History Ferric Citrate [Auryxia] 210 mg PO AC 12/14/18 12/14/18 Unknown History Losartan Potassium 100 mg PO DAILY 12/14/18 12/14/18 Unknown History Magnesium Oxide 400 mg PO DAILY 12/14/18 12/14/18 Unknown History Ondansetron [Ondansetron Odt] 4 mg PO PRN PRN 12/14/18 12/14/18 Unknown History - History of Present Illness-ABD Nature of Presenting Problems: Pt is 58/M presenting to ED w/ ABD pain that started about 3-4 hrs [employer]. Pt sts that the pain is constant and diffuse, and that he has not had abd pain like this in the past. The last time pt ate was around 6pm. N/v/d, took zofran at home. hx of renal failure and is on peritonial dialysis. HX of peritonitis. Abdominal Pain Onset Location: reports: epigastric Pain Radiation: reports: no radiation Quality of Pain: reports: aching Severity in ED: reports: moderate Onset/Duration: reports: 1-3 hours ago, 4-6 hours ago Timing: reports: still present Activities at Onset: reports: none Exposure to sick contacts?: No Modifying Factors: improves with: nothing Associated Symptoms: reports: diarrhea, nausea, vomiting. denies: cough, shortness of breath Last BM: this evening Dark Stools Present?: reports: none noticed Rectal Bleeding: reports: none Rectal Pain: reports: none Emesis Description: reports: none Bruising or Bleeding Gums?: No Similar Symptoms Previously?: No Recently seen or treated by another doctor?: No Review of Systems - Adult - REVIEW OF SYSTEMS - ADULT Constitutional: denies: chills, fever Eyes: reports: no symptoms reported Ears, Nose, Mouth & Throat: reports: no symptoms reported Cardiovascular: reports: no symptoms reported Respiratory: reports: no symptoms reported. denies: cough Gastrointestinal: reports: abdominal pain, diarrhea, nausea, vomiting Genitourinary: reports: no symptoms reported Musculoskeletal: reports: no symptoms reported Integumentary: reports: no symptoms reported Neurological: reports: no symptoms reported. denies: dizziness/vertigo, headache/migraines Psychiatric: reports: no symptoms reported Endocrine: reports: no symptoms reported Hematologic/Lymphatic: reports: no symptoms reported Allergic/Immunologic: reports: no symptoms reported All Other Systems: Reviewed and Negative Past History - Adult - PAST MEDICAL HISTORY-ADULT Review of Records: reports: Old Records Reviewed, Nursing Assessment Review, Medications Reviewed, Social history reviewed & non-contributory. - SOCIAL HISTORY Living Situation: family Physical Exam-General - PHYSICAL EXAM-ADULT Initial Vital Signs Reviewed: Yes - CONSTITUTIONAL General Appearance: appears well, alert, mild distress - EYES Eyes: PERRL/EOMI, pink conjunctivae - HEAD, EARS, NOSE, MOUTH & THROAT HENMT: normocephalic/atraumatic, moist mucous membranes, normal ENT inspection, TMs normal, pharynx normal - NECK Neck: non-tender, full range of motion, supple - RESPIRATORY Respiratory: lungs clear - CARDIOVASCULAR Cardiovascular: regular rate, rhythm - GASTROINTESTINAL (ABDOMEN) Abdominal Exam: normal bowel sounds, soft, tenderness (general abd tenderness) - LYMPHATIC Lymphatic: no adenopathy - MUSCULOSKELETAL Back Exam: normal inspection, no CVA tenderness, no vertebral tenderness Extremity: normal range of motion, non-tender, normal gait, normal inspection - SKIN Integumentary: normal color, warm/dry - NEUROLOGIC Neurologic: grossly normal - PSYCHIATRIC Psych/Mental Status: normal mood/affect, normal thought content, normal thought process, oriented x 3 Progress - PLAN OF CARE/RESULTS Progress/Plan/Lab Results: Vital Signs - 8 hr 03/10/19 01:40 Temperature 97.4 F L Pulse Rate 91 H Respiratory Rate 20 Blood Pressure 107/70 O2 Sat by Pulse Oximetry 95 Result Diagrams: 03/10/19 02:25 - CT/MRI 1 CT Study: Abdomen Impression: Abnormal, See EMR Report - CONSULTS/PCP/HOSPITALIST Notification #1 *Consult/PCP/Hospitalist*: D/W DR HOLDEN Time Discussed: 03:15 Consult Disposition: Admit Departure - Departure Date of Disposition Decision: 03/10/19 Time of Disposition Decision: 03:19 DIAGNOSIS: Abdominal pain, Peritonitis Disposition: ADMITTED INPATIENT 09 Certified Medical Emergency: Emergent Condition: Stable Referrals and Follow-Ups: Leo Chambers MD [Primary Care Provider] - - Critical Care Note This patient required my direct & personal management of CC.: No Attestation - Physician/ CAYDEN Attestation Patient care was provided by Advanced Practice Provider:: No The physician spent face to face time with patient:: Yes Advanced Practice Provider documentation review:: Supervising physician onsite and consulted in the evaluation and care of this patient. The physician did have a face to face encounter with the patient. This chart was documented by the indicated scribe, (Heather Tipton, Jasmyn) and accurately reflects the services I performed and decisions made by me, Lawanda Stratton MD, as attested by the provider's signature.
[2019-03-10] MEDS ORDERED: DILAUDID IV ONE ×2 (02:37→03:45)
[2019-03-10 02:48] LABS: BASO# 0.01 X1000 (0.0-0.2); BASO% 0.1 % (0.0-0.8); EOS# 0.06 X1000 (0.0-0.7); EOS% 0.4 % (0.0-10.0); HEMATOCRIT 35.7 % (42.0-52.0); HEMOGLOBIN 11.5 g/dL (14.0-18.0); IMM GRAN# 0.13 X1000 (0.0-0.04); IMM GRAN% 0.8 % (0.0-0.5); LYMPH# 1.57 X1000 (1.2-3.4); LYMPH% 9.9 % (20.5-51.1); MCH 30.2 PG (27-31); MCHC 32.2 g/dL (33-37); MCV 93.7 FL (81-99); MONO# 0.89 X1000 (0.11-0.59); MONO% 5.6 % (1.7-9.3); MPV 10.6 FL (7.4-10.4); NEUT# 13.18 X1000 (1.4-6.5); NEUT% 83.2 % (42.2-75.2); PLT 616 X1000 (130-400); RBC 3.81 XMIL (4.7-6.1); RDW 13.5 % (11.5-14.5); WBC 15.84 X1000 (4.8-10.8)
[2019-03-10] MEDS ORDERED: VANCOMYCIN IV PER PHARMACY MISC SCH (03:15)
[2019-03-10] MEDS ORDERED: ZOSYN 3.375 GM in NS 50 ML IV ONE (03:45)
[2019-03-10 03:57] LABS: ALB/GLOB RATIO 0.7; ALBUMIN 2.6 g/dL (3.5-5.0); CALCIUM 9.7 mg/dL (8.8-10.2); CREATININE 8.1 mg/dL (0.7-1.2); POTASSIUM 4.3 mmol/L (3.5-5.1); TOTAL BILIRUBIN 0.27 mg/dL (0.20-1.00); TOTAL PROTEIN 6.5 g/dL (6.3-8.3)
[2019-03-10] MEDS ORDERED: TYLENOL PO PRN (04:25)
[2019-03-10] MEDS ORDERED: ROCEPHIN 1 GM in NS 50 ML IV SCH ×2 (06:00→08:00)
[2019-03-10] MEDS ORDERED: NS 250 ML IV ONE (06:05)
[2019-03-10] MEDS: VANCOMYCIN 1 GM/NS 1 GM/250 ML IVPB IV SCH ×2 (06:21→08:44)
[2019-03-10] MEDS: HEPARIN SUBQ SCH ×3 (06:22→21:07)
[2019-03-10 07:47] LABS: HEMOGLOBIN A1C 8.8 % (4.8-6.0)
--- NOTE | 2019-03-10 08:13 | Diag Imaging Result Doc PS360 ---
EXAM: CT ABDOMEN/PELVIS W/O CONTRAST INDICATION: ABD PAIN TECHNIQUE: This exam was performed using automated exposure control, adjustment of mA or kV according to patient size, and/or use of iterative reconstruction technique. COMPARISON: 12/14/2018 FINDINGS: There is bibasilar subsegmental atelectasis. There is trace pericardial fluid similar to the previous study. There is stable cholelithiasis. The liver and spleen are unremarkable. Multiple retroperitoneal metallic clips are causing mild artifact. There is a large necrotic mass in the mesentery of the right abdomen. It was also seen on the previous study but has increased substantially in size. It measures up to 16.9 x 11.1 cm axially (6.6 x 4.3 cm on the previous study. It exhibits internal complex fluid with air-fluid levels. There is extensive surrounding lymphadenopathy. This has worsened during the interval. Some of the surrounding lymph nodes exhibit low internal density suggesting necrosis. This mass may represent a large abscess, perhaps arising from a suppurative lymph node. Necrotic neoplasm is technically possible as well. A peritoneal dialysis catheter is in place. There are also droplets of free abdominal gas throughout the mid and upper abdomen that are probably related to peritoneal dialysis. However, some of the gas could escaped from the loculated necrotic mass, which contains significant amount of gas. The pancreas is atrophic and is grossly unremarkable, otherwise. There is stable atrophy at the inferior aspect of the right kidney. There are several stable cystic appearing renal foci. The urinary bladder is largely nondistended. There is mild posterior urinary bladder wall thickening that is probably due to underdistention. There is a small to moderate volume of free fluid in the abdominal cavity. There is no evidence of bowel obstruction. The remainder of the GI tract is essentially unremarkable. IMPRESSION: 1.Significant enlargement of the necrotic mesenteric masslike lesion with internal air-fluid levels compared to the previous study and worsening of surrounding mesenteric lymphadenopathy. Please see above discussion. 2.Small droplets of extraluminal free gas in the abdomen that is probably related to peritoneal dialysis. However, some could have escaped from the large necrotic mass that contains significant amount of gas. Electronically signed by Roberto Blackmon 03/10/2019 8:11 AM
[2019-03-10] MEDS: DILAUDID IV PRN ×3 (08:35→19:20)
[2019-03-10] MEDS: HUMALOG SUBQ SCH ×2 (12:10→16:59)
--- NOTE | 2019-03-10 12:36 | PROGRESS NOTE ---
DATE: 03/10/2019 SUBJECTIVE: This morning Mr. Agosto refers to be doing fairly okay. He still has generalized weakness and mild abdominal discomfort. OBJECTIVE: Vital: Blood pressure is 92/62, pulse of 103, respiration is 19, temperature is 98.9 degrees. On general exam, Mr. Agosto is a 58-year-old gentleman. He is in bed, no distress. Mucosa is pink and moist. Anicteric. Acyanotic. Neck is supple. Chest: Good air entry bilateral. Cardiovascular: Regular rate and rhythm. Abdomen: Soft and minimally distended and mildly tender. There is an old midline surgical scar. There is a PD catheter in place. There was no rebound or guarding. Extremities: No pedal edema. Central Nervous System: Patient is awake, alert, and oriented. LABORATORY DATA: WBC is 15.84, hemoglobin is 11.5, platelet count of 616. Chemistry is also reviewed, bicarbonate is 17 with a gap of 24, AST and ALT are minimally elevated. IMAGING STUDIES: Have been reviewed. A CT scan of the abdomen suggests significant enlargement of a necrotic mesenteric mass-like lesion with internal air-fluid levels. Compared to previous studies seems to be worsening. ASSESSMENT: 1. Abdominal pain on presentation secondary to a necrotic mesenteric mass, which seems to be getting worse. 2. Necrotic mesenteric mass of unsure etiology. Patient has a history of childhood testicular cancer status post chemotherapy and testicular removal. He also has been diagnosed recently with CLL, according to him. I do not have any documents to support that. We will get [facility] to evaluate him and give us some recommendation as to the best approach to evaluate this mesenteric mass. 3. Sepsis on presentation secondary to the necrotic mesenteric mass. The patient is on antimicrobial therapy. Cultures have also been done. 4. Endstage renal disease, on peritoneal dialysis. Nephrology has been consulted. 5. Diabetes mellitus. Presenting A1c is 8.8. Patient is on insulin pump. In general, Mr. Agosto got admitted yesterday because of abdominal pain and some subjective fever and chills. Imaging studies have revealed that he has a necrotic mass- like lesion in the mesentery, which he knew about in December, but the comparing image seems to be getting worse. Mr. Agosto is currently on IV antimicrobial therapy. Nephrology is on board ,and we will get Hematology/Oncology to evaluate him and recommend the best way to study this necrotic mass. Of note, Mr. Agosto is a peritoneal dialysis patient, which means any needle that is introduced there was going to potentially get the peritoneal space violated, and if we need to study this mass, then he would eventually be converted to hemodialysis. In any case, we will get Hematology/Oncology to give us some recommendations. cc: Elmo Syed MD Addendum: Blood culture showing GNR and peritoneal fluid also showing GNR. ASS: PD catheter related GNR peritonitis with bacteremia. Change antibiotic to Fortaz and discontinue vancomycin MTDD
[2019-03-10 17:51] LABS: BODY FLUID SOURCE PERITONEAL FLUID
[2019-03-10 17:53] LABS: WBC BF 206000 /cumm
[2019-03-10 18:55] LABS: URINE SOURCE CLEAN CATCH
[2019-03-10 19:01] LABS: BILIRUBIN URINE NEGATIVE (NEGATIVE); BLOOD URINE TRACE (NEGATIVE); COLOR YELLOW; GLUCOSE URINE 150 mg/dL (NEGATIVE); KETONE URINE NEGATIVE (NEGATIVE); LEUKOCYTES URINE NEGATIVE (NEGATIVE); NITRITE URINE NEGATIVE (NEGATIVE); PH URINE 5.5; PROTEIN URINE 200 mg/dL (NEGATIVE); TURBIDITY URINE HAZY (CLEAR); UROBILINOGEN URINE NORMAL (NORMAL)
[2019-03-10 19:04] LABS: MONOS 9 %; POLYS 91 %
[2019-03-10 19:07] LABS: UR EPITHELIAL CELLS <10 /HPF (<10); URINE BACTERIA NEGATIVE /HPF; URINE RBC <10 /HPF (<10)
[2019-03-10 19:29] LABS: URINE CASTS NONE SEEN; URINE CRYSTALS NONE SEEN; URINE SMALL ROUND CELLS TRANS PRESENT; URINE YEAST NONE SEEN
--- NOTE | 2019-03-10 19:39 | HISTORY AND PHYSICAL ---
CHIEF COMPLAINT: Abdominal pain. HISTORY OF PRESENT ILLNESS: Mr. Agosto is a 58-year-old male with end-stage renal disease who does peritoneal dialysis. He has had constant diffuse abdominal pain for the last 3-4 hours prior to arrival. He has a history of peritonitis. He also had nausea, vomiting and diarrhea after 6 p.m. last night. He took some Zofran at home. This did not help, so he came in to the emergency room. Initial workup does show a leukocytosis, an elevated blood glucose and plasma lactate. Peritoneal fluid is being assessed for peritonitis. He will be admitted for further evaluation and treatment. PAST MEDICAL HISTORY: Diabetes type 2, now insulin dependent with neuropathy, hyperlipidemia, hypertension, end-stage renal disease with peritoneal dialysis, bladder cancer, testicular cancer, necrotic mesenteric tumor. PREVIOUS SURGICAL HISTORY: Radical retroperitoneal lymph node dissection relating to his testicular cancer, bladder cancer excision, right shoulder surgery, peritoneal dialysis catheter. FAMILY HISTORY: Breast cancer in his mother, diabetes in his brother. SOCIAL HISTORY: No tobacco, alcohol or illicit drugs. and lives with his . He is a [employer]. ALLERGIES: Penicillin, Levaquin and Tramadol. HOME MEDICATIONS: Atorvastatin 20 mg p.o. daily, insulin aspart sliding scale, Omeprazole 20 mg p.o. at bedtime, insulin pump sliding scale, Sensipar 1 tablet p.o. daily, magnesium oxide 400 mg p.o. daily, Zofran 4 mg p.o. p.r.n., Calcitriol 0.1 mcg p.o. daily. REVIEW OF SYSTEMS: A 14-point review of systems was conducted with the patient. Pertinent positives listed above in HPI. All other systems reviewed and found to be negative. PHYSICAL EXAMINATION: VITAL SIGNS: Temperature 97.4, pulse 91, respirations 20, blood pressure 107/70, oxygen saturation 95% on room air. GENERAL: A 58-year-old male in no acute distress, alert and oriented x3. Answers all questions appropriately. Lying on the ER stretcher. HEENT: Head is atraumatic, normocephalic. Pupils equal, round and reactive to light. Extraocular eye movement intact. Sclerae are anicteric. Conjunctivae are mildly pale. Oral mucosa is somewhat dry. NECK: Supple. No JVD. No thyromegaly. Trachea is midline. No cervical lymphadenopathy. CARDIAC: S1 and S2 appreciate. No murmurs, gallops or rubs. LUNGS: Clear to auscultation bilaterally. No rhonchi, wheezes or rales. ABDOMEN: Protuberant, soft. Diffuse mild tenderness. No rebound tenderness. No guarding. Bowel sounds hypoactive. EXTREMITIES: No clubbing or cyanosis. Decreased pedal pulses bilaterally. No edema. NEUROLOGICAL: Alert and oriented x3. No focal or motor deficits. Otherwise nonfocal examination. SKIN: Warm, dry and intact. No acute lesions or rash. Peritoneal dialysis catheter is clean, dry and intact. MUSCULOSKELETAL: Has 5/5 strength in all 4 extremities. DIAGNOSTIC DATA: CT of the abdomen and pelvis showed slight enlargement of necrotic mesenteric mass-like lesion which appears to be somewhat worse than previous. LABORATORY DATA: WBCs 15.84, hemoglobin 11.5, hematocrit 35.7, platelet count 616. Sodium 138, potassium 4.3, chloride 97, carbon dioxide 17, BUN 103, creatinine 8.1, glucose 189, plasma lactate 3.8. Peritoneal fluid is pending. ASSESSMENT/PLAN: 1. Probable peritonitis; however, this could be sepsis related to his necrotic mesenteric mass. Will start him on IV antibiotics, consult Dr. Chambers to manage his peritoneal dialysis. Will change antibiotics based off of pending cultures if necessary 2. Necrotic mesenteric mass of unsure etiology. Aware. Continue to monitor. 3. Sepsis secondary to numbers 1 and 2. As noted above, will be started on antimicrobial therapy. 4. End-stage renal disease with peritoneal dialysis. Nephrology has been consulted. 5. Diabetes mellitus type 2, now insulin dependent. Sliding scale insulin before meals and at bedtime with low-dose sliding scale. The patient has an insulin pump. Check hemoglobin A1c. Continue to monitor. 6. Further recommendations per patient's clinical course. Dictated by SILVIA Park for Martin Villanueva MD I have performed a face to face diagnostic evaluation. Labs/ Xrays- reviewed. Exam- Abd- diffuse tenderness. A/P- Suspected peritonitis, Sepsis, ESRD- Admit, check blood cultures, IV ABX, Nephrology consult. Dr. Villanueva cc: SILVIA Park MD [facility]
--- NOTE | 2019-03-10 19:41 | NEPHROLOGY CONSULTATION ---
DATE: 03/10/2019 REASON FOR ADMISSION: Abdominal pain with cloudy peritoneal fluid . REASON FOR CONSULT: End-stage renal disease with assistance with dialysis and peritonitis. CONSULTING PHYSICIAN: Dr. Lawanda Stratton. HPI: Mr. Agosto is a 58-year-old white male who is known to our outpatient services for peritoneal dialysis at home. He normally runs on the cycler at night. The patient stated that he missed his treatment 2 nights ago secondary to just having depression and weakness. He went to place himself on dialysis yesterday evening stated that he started in with abdominal pain, this lasted about 3 to 4 hours. He tried to tolerate this out. The patient states the pain was about a 6 to 7 out of a 10. Due to this continued pain without relief he took himself off of his cycler. He did drain part of his dialysis fluid and presented to [facility] for evaluation of his abdominal pain. The patient has currently been admitted to rule out peritonitis. He has recently been hospitalized on 12/14/2018 for the same conditions. Unfortunately he also had severe bright red blood in his peritoneal fluid at that time associated with fever and chills. His stated that he did have chills with rigor the other evening but it resolved. He has pain to abdominal touch, dull achy. No drainage to his exit site. He denies any nausea, vomiting, no diarrhea, nonradiating pain. No chest pain. No increased work of breathing. No increased lower extremity swelling. No recent cough. No recent exposure to patients with the flu. He still voids. No hematochezia or hematuria. No hemoptysis. No recent weight loss. Patient was recently diagnosed with lymphoma of the biopsy at [facility] in early December, he has been evaluated at [facility] in [place] in the past. Due to these current findings, patient has been admitted for further monitoring, evaluation and antibiotic therapy. They have already obtained PD fluid for cell count and for culture. These are still currently pending. 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 PREVIOUS SURGICAL HISTORY: Placement of dialysis tunnel catheter, he has had a dialysis peritoneal catheter placement, retroperitoneal lymph node dissection relating to his testicular cancer, bladder cancer excision, right shoulder surgery. FAMILY HISTORY: Positive for breast cancer in mother, diabetes in brother. SOCIAL HISTORY: He is . His spouse is at his bedside. 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 Denies tobacco, alcohol or illicit drug use. CURRENT ALLERGIES: Listed as Levaquin, penicillin and tramadol. HOME MEDICATIONS: Amlodipine, armodafinil, ferric citrate, calcitriol, Coreg, Lasix, losartan, magnesium oxide, Mavik, modafinil, NovoLog, omeprazole, Zofran, Sensipar, Tricor, hydrocodone, he also receives Aranesp, the patient states that he has recently been taken off his armodafinil and his modafinil, Lasix is p.r.n. REVIEW OF SYSTEMS: Times 10 with pertinent positives listed above in the HPI. Patient's most recent vital signs temperature 98.6 degrees, blood pressure 106/67, heart rate 107, respirations 18, he is currently on 2 L nasal cannula, last recorded saturation is 94%, he has had 0 recorded in or out at this time. LABS: This a.m. sodium 138, potassium 4.3, chloride 97, CO2 17, BUN 103, creatinine 8.1, glucose is 189, anion gap of 24, calcium of 9.7, albumin of 2.6, plasma lactate of 3.8. White count 15.84, hemoglobin 11.5, hematocrit 35.7 with a platelet count of 616,000. Blood cultures are currently pending. Peritoneal fluid is currently pending, these have been received early this a.m. PHYSICAL EXAM: General: This is a 58-year-old white male he is resting quietly in bed. He has received pain medication. States his pain level is down to a 2 to 3 out of a 10 tolerable. He appears in no acute distress. Skin: Warm and dry. HEENT: Normocephalic, atraumatic. Conjunctivae pale. He has YAW. Mucous membranes are dry. Neck: Supple, trachea midline. He has positive JVD at the clavicle. Cardiovascular: Regular rate and rhythm. No murmur or gallop. Lungs: Clear to auscultation bilateral. Equal excursion on O2. Abdomen: Protuberant, slight tenderness to palpation. Genitourinary: Not inspected, patient has continued void with dialysis assist. Extremities: Have no edema, no clubbing or cyanosis. Neurological: Alert and oriented x3. ASSESSMENT AND PLAN: 1. Chronic kidney disease stage 5D. Patient has been drained prior to coming into the emergency room. We will plan to place him on 12 cycles today for 1 hour each 2 L for 1 hour dwell in an attempt to rinse his abdomen with a 2.5% fluid. We will check a cell count in the a.m. along with cultures and sensitivity and Gram stain. These are currently pending that have been drawn this a.m. I will call and follow up on these. 2. Electrolytes and acid-base balance. These are acceptable. 3. Anemia. This is low but stable. 4. Newly diagnosed lymphoma. He has a mass in his pelvic abdominal cavity followed by the primary care. Previously seen by [facility]. 5. Leukocytosis. Patient has received Zosyn and vancomycin and a dose of Rocephin during this hospital stay. We will reevaluate and order another vancomycin every 48 hours. Cultures are currently pending. Like to thank you for allowing us to follow with this patient. Dictated by SILVIA Gordillo for Leo Chambers MD Face to face encounter, data reviewed, discussed with Lisy Kay on 03/10/19. I agree with the above assessment and plan of care. cc: SILVAI Gordillo MD [facility]
--- NOTE | 2019-03-10 20:03 | GENERAL SURGERY CONSULTATION ---
DATE: 03/10/2019 HISTORY OF PRESENT ILLNESS: Mr. Agosto is known to me from a PD catheter placed in December of 2017. Last night after he hooked up, he started experiencing abdominal pain. The day before he had had some chills. He apparently was diagnosed with lymphoma and followed by Dr. Whyte, has significant mesenteric and retroperitoneal adenopathy. This apparently was again diagnosed back in December of 2018. He has a history of testicular cancer as well. He treated for peritonitis back in December but kept his catheter and continued to dialyze. A CT scan done today showed the significant enlargement of the necrotic nodes. His other medical problems include hyperlipidemia, hypertension and diabetes. Other surgery includes shoulder surgery and the bladder excision with the retroperitoneal node dissection. FAMILY HISTORY: Pertinent for diabetes. SOCIAL HISTORY: Denies alcohol or drug use. He is . 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 REVIEW OF SYSTEMS: As noted above. PHYSICAL EXAMINATION: Vital Signs: He is afebrile, heart rate 103, blood pressure 109/73. Neck: No cervical adenopathy. Respiratory: Bilateral breath sounds. Heart: Regular rate and rhythm. Abdomen: Somewhat distended, mildly tender. His fluid appears clear. Extremities: No peripheral edema. DIAGNOSTICS/LABS: White count is 15,800, hemoglobin 11.5, hematocrit 35.7, BUN 103, creatinine 8.1. ASSESSMENT: His pain that he experiences the etiology is uncertain. He has had some chills. The possibility includes typical bacterial peritonitis as related to his peritoneal dialysis catheter, but also one must consider whether he had peritonitis related to his adenopathy. Blood cultures are all preliminary. His PD fluid culture is preliminary as well. PLAN: The plan is to give him liquids tonight. I will recheck his lab work tomorrow morning and decide about whether to remove his PD catheter or not. He has never had a tunneled catheter before, but if we have to remove his PD catheter, we will place that as well. cc: Bryson Canales MD
[2019-03-11] MEDS ORDERED: TAZIDIME 1 GM in NS 50 ML IV ONE (00:30)
[2019-03-11] MEDS: DILAUDID IV PRN ×3 (01:18→15:14)
[2019-03-11] MEDS: HUMALOG SUBQ SCH ×4 (03:29→18:00)
[2019-03-11] MEDS: HEPARIN SUBQ SCH ×3 (05:07→21:26)
[2019-03-11 07:02] LABS: BASO# 0.01 X1000 (0.0-0.2); BASO% 0.1 % (0.0-0.8); EOS# 0.02 X1000 (0.0-0.7); EOS% 0.1 % (0.0-10.0); HEMATOCRIT 31.1 % (42.0-52.0); HEMOGLOBIN 9.9 g/dL (14.0-18.0); IMM GRAN# 0.09 X1000 (0.0-0.04); IMM GRAN% 0.7 % (0.0-0.5); LYMPH# 2.24 X1000 (1.2-3.4); LYMPH% 16.4 % (20.5-51.1); MCH 30.1 PG (27-31); MCHC 31.8 g/dL (33-37); MCV 94.5 FL (81-99); MONO# 0.75 X1000 (0.11-0.59); MONO% 5.5 % (1.7-9.3); MPV 10.4 FL (7.4-10.4); NEUT# 10.54 X1000 (1.4-6.5); NEUT% 77.2 % (42.2-75.2); PLT 506 X1000 (130-400); RBC 3.29 XMIL (4.7-6.1); RDW 13.4 % (11.5-14.5); WBC 13.65 X1000 (4.8-10.8)
[2019-03-11 07:28] LABS: ALBUMIN 2.2 g/dL (3.5-5.0); CALCIUM 9.8 mg/dL (8.8-10.2); CREATININE 8.3 mg/dL (0.7-1.2); PHOSPHORUS 9.7 mg/dL (2.7-4.5); POTASSIUM 4.3 mmol/L (3.5-5.1)
[2019-03-11] MEDS ORDERED: DILAUDID IV ONE (08:50)
[2019-03-11] MEDS ORDERED: XYLOCAINE-MPF 2% ONE (11:06)
[2019-03-11] MEDS ORDERED: DIPRIVAN 1% ONE (11:06)
[2019-03-11] MEDS ORDERED: ROBINUL ONE (12:10)
[2019-03-11 12:58] LABS: BODY FLUID SOURCE PERITONEAL FLUID; WBC BF 19971 /cumm
[2019-03-11 13:00] LABS: MONOS 10 %; POLYS 90 %
[2019-03-11] MEDS ORDERED: SENSORCAINE 0.25%/EPI 1:200,000 ONE (13:37)
[2019-03-11] MEDS: MIRALAX PO SCH (15:06)
--- NOTE | 2019-03-11 18:08 | GENERAL SURGERY PROGRESS NOTE ---
DATE: 03/11/2019 SUBJECTIVE/PLAN: Mr. Agosto's PD fluid has grown a gram-negative michael. His blood is growing a gram-negative michael. I think he had bacteremia a few months ago and he has had it again. My recommendation would be to remove his PD catheter, give his bloodstream a couple of days to sterilize, and then put a tunneled catheter in him at that time. I have discussed that with him. We tentatively have him scheduled for removal of the PD catheter. I will speak with Dr. Chambers as well. cc: Bryson Canales MD
--- NOTE | 2019-03-11 20:57 | PROGRESS NOTE ---
DATE: 03/11/2019 INTERVAL HISTORY: The patient currently n.p.o. for surgical procedure later today. Patient going for removal of his peritoneal dialysis catheter. Patient afebrile overnight. Still endorsing some abdominal pain diffusely, which was relatively well controlled. No other complaints. REVIEW OF SYSTEMS: Twelve-point review of systems a per interval history. LABS: WBC 13.9, hemoglobin 0.9, hematocrit 31.1, platelets 506,000. Sodium 132, potassium 4.3, bicarb 24, BUN 91, creatinine 8.3, glucose 90 to 215. Peritoneal fluid with large number of neutrophils. The blood and peritoneal fluid cultures growing gram-negative rods. PHYSICAL EXAMINATION: General: No acute distress. Vitals: As above. HEENT: Normocephalic, atraumatic. Moist mucous membranes. Neck: No cervical adenopathy. Cardiovascular: Regular rate and rhythm. No murmurs, rubs or gallops. Pulmonary: Clear to auscultation bilaterally. No wheezing, rales, or rhonchi. Abdomen: Soft. Moderate, diffuse tenderness without rebound or guarding. Bowel sounds decreased but present. Extremities: Peripheral pulses intact. No clubbing or cyanosis. Neurologic: Cranial nerves grossly intact. No focal deficits identified. Psychiatric: Normal mood and affect. Awake, alert, oriented x3. Skin: No new rashes or lesions identified. PD catheter without surrounding erythema or drainage. ASSESSMENT AND PLAN: 1. Likely peritonitis. The patient with diffuse abdominal pain and peritoneal fluid studies strongly suggestive of peritonitis. Going for removal of peritoneal dialysis catheter later today. Clinical picture somewhat complicated by his diagnosis of lymphoma with extensive abdominal lymphadenopathy which could also be contributing to his issues. Large necrotic mass was seen on CT. Continue antibiotics with ceftazidime for now pending further speciation of his cultures. Both blood and peritoneal fluid cultures growing out gram- negative rods. Patient is afebrile and he reports some improvement in his pain, so we will continue the ceftazidime for now, but if patient becomes febrile or symptoms worsen, then a very low threshold to change to cefepime, Merrem, or other agent that will cover for Pseudomonas. 2. necrotic mesenteric mass. Patient with relatively recent diagnosis of lymphoma. Mass likely related to that. We will see how surgery goes, but may end up having to consult Oncology. 3. End-stage renal disease. Has been on peritoneal dialysis. Removing peritoneal dialysis catheter as above. Will need other dialysis access. Nephrology consult and following. 4. Diabetes mellitus. Overall acceptable control on current regimen, monitor. [facility] HOSPITALDanielle
--- NOTE | 2019-03-11 21:10 | OPERATIVE NOTE ---
PROCEDURE DATE: 03/11/2019 NAME OF PROCEDURE: Removal of peritoneal dialysis catheter. SURGEON: Bryson Canales MD. SENIOR STORAGE ENGINEER: Enio Obrien. PREOPERATIVE DIAGNOSIS: Gram-negative peritonitis, infected peritoneal dialysis catheter. POSTOPERATIVE DIAGNOSIS: Gram-negative peritonitis, infected peritoneal dialysis catheter. PROCEDURE: This is a 58-year-old who has peritoneal dialysis catheter with infection. He is growing gram-negative rods. He also has gram-negative bacteremia. We are removing his PD catheter to clear his infection. Satisfactory general anesthesia was achieved. An LMA was used. The abdomen was prepped and draped in a sterile fashion. We anesthetized the skin around the umbilicus, incised the skin at the area of the old scar, and dissected down to the fascia. We identified the cuff. We clamped the catheter [id number] and divided the catheter between the 2 clamps. After freeing the cuff, we removed the intra-abdominal portion of the catheter. We then closed the fascia with two 2-0 Polysorb [id number] stitches. We then dissected along the course of the subcutaneous tunnel until we could free up the cuffs, and we reached them really from the more radial entrance, that is the exit site of the skin of the catheter. We had to incise the skin and dissect back to the cuffs to free them up, until the catheter could be delivered from the subcutaneous tunnel from both ends. There was some bleeding. We held pressure. Hemostasis was achieved. We then closed the subcutaneous tissue at the umbilical incision with 3-0 Polysorbs. The skin was closed with 4- 0 Polysorb subcuticular stitch, both at the umbilical incision and the upper right upper quadrant incision. Sterile dressings were applied and a binder was placed to hold some gentle pressure on the subcutaneous tunnel. He tolerated it well. Was sent to the recovery room in satisfactory condition. cc: Bryson Canales MD
--- NOTE | 2019-03-11 21:13 | NEPHROLOGY PROGRESS NOTE ---
DATE: 03/11/2019 TIME: 6:55 SUBJECTIVE: Mr. Agosto is resting quietly in a chair. He has finished his peritoneal dialysis cycles from yesterday. He states that he is feeling slightly better. OBJECTIVE: Most recent vital signs: His last temperature 98.4 degrees, blood pressure 149/83, heart rate 93, respirations 16. He is on room air. Last recorded saturation is 98%. He has had 50 mL in, and he has had 200 mL out to void. None recorded on dialysis. Labs: His sodium is 132, potassium 4.3, chloride 91, CO2 24, BUN 91, creatinine 8.3, glucose is 90. The patient has an anion gap of 17, his calcium is 9.8, phosphorus 9.7, albumin is 2.2 with a magnesium of 1.6. White count 13.65, hemoglobin 9.9, hematocrit 31.1 with a platelet count of 506,000. The patient's white cell count on his peritoneal dialysis fluid from yesterday was 206,000 with repeat this a.m. Gram stain currently pending. General: This is a 58-year-old white male resting quietly in bed. He appears modestly ill, though no acute distress. Skin: Warm and dry. HEENT: Normocephalic, atraumatic. Conjunctivae are pale and pink. He has YAW. Mucous membranes are dry. Neck: Supple. Trachea midline. No evidence of JVD in the upright position. Cardiovascular: He is regular rate and rhythm. He is without murmur or gallop. Lungs: Clear to auscultation bilaterally. Equal excursion on O2. Abdomen: Soft, protuberant. Slight tenderness upon palpation. PD catheter remains dry and intact without redness or drainage. Genitourinary: Not inspected, minimal void with dialysis assist. Extremities: Have no edema, no clubbing or cyanosis. Neurological: Alert and oriented x3. ASSESSMENT AND PLAN: 1. Chronic kidney disease stage 5D. The patient was treated with 12 cycles of 2 L over 1 hour dwell yesterday. He tolerated this well. We were rechecking a cell count this a.m. for peritonitis. Patient has received intravenous antibiotics of Rocephin and vancomycin along with Zosyn yesterday to be repeated again as directed. Based upon his cell count today we have discussed possible removal of his peritoneal dialysis catheter with hemodialysis backup. Patient states understanding. 2. Electrolytes and acid-base balance. These are acceptable. 3. Anemia. This is low but stable. 4. Lymphoma. The patient has been previously seen by [facility]. He has a mass in his pelvic abdominal cavity followed by primary care. 5. Leukocytosis. As mentioned, patient has received Zosyn, vancomycin and Rocephin. These are renally dosed. I would like to thank you for allowing us to follow with this patient. Dictated by SILVIA Gordillo for Leo Chambers MD Face to face encounter, data reviewed, discussed with Lisy Kay on 03/11/19. I agree with the above assessment and plan of care. cc: SILVIA Gordillo MD [facility]
[2019-03-12] MEDS: HUMALOG SUBQ SCH ×3 (00:16→11:35)
[2019-03-12] MEDS: DILAUDID IV PRN ×3 (00:31→20:36)
[2019-03-12] MEDS: TAZIDIME 0.5 GM in NS 50 ML IV SCH (00:39)
[2019-03-12] MEDS: HEPARIN SUBQ SCH ×3 (04:12→20:36)
[2019-03-12 07:44] LABS: BASO# 0.02 X1000 (0.0-0.2); BASO% 0.1 % (0.0-0.8); EOS% 0.6 % (0.0-10.0); HEMATOCRIT 28.9 % (42.0-52.0); HEMOGLOBIN 9.2 g/dL (14.0-18.0); IMM GRAN# 0.24 X1000 (0.0-0.04); IMM GRAN% 1.5 % (0.0-0.5); LYMPH# 2.53 X1000 (1.2-3.4); LYMPH% 16.2 % (20.5-51.1); MCH 30.1 PG (27-31); MCHC 31.8 g/dL (33-37); MCV 94.4 FL (81-99); MONO# 0.99 X1000 (0.11-0.59); MONO% 6.3 % (1.7-9.3); MPV 10.6 FL (7.4-10.4); NEUT# 11.77 X1000 (1.4-6.5); NEUT% 75.3 % (42.2-75.2); PLT 496 X1000 (130-400); RBC 3.06 XMIL (4.7-6.1); RDW 13.5 % (11.5-14.5); WBC 15.65 X1000 (4.8-10.8)
[2019-03-12 07:55] LABS: ALBUMIN 2.2 g/dL (3.5-5.0); CALCIUM 10.1 mg/dL (8.8-10.2); CREATININE 9.1 mg/dL (0.7-1.2); PHOSPHORUS 11.2 mg/dL (2.7-4.5); POTASSIUM 4.2 mmol/L (3.5-5.1)
[2019-03-12] MEDS: MIRALAX PO SCH (10:03)
--- NOTE | 2019-03-12 13:10 | NEPHROLOGY PROGRESS NOTE ---
DATE: 03/12/2019 TIME SEEN: 07 SUBJECTIVE: Mr. Agosto is resting quietly in a chair. He states that his abdomen is warper tender though he is feeling slightly better. OBJECTIVE: Temperature 98.4; blood pressure 101/69; heart rate 99; respirations 16. He is on room air with last recorded saturation 92%. He has had 490 in. He has had 5 mL recorded out. LABS: Sodium 130, potassium 4.3, chloride 90, C02 22, BUN 101 with creatinine of 9.1, glucose 56. The patient has an anion gap of 18. Calcium 10.1, phosphorus 11.2, albumin 2.2. Previous hemoglobin 9.9. His peritoneal fluid has showed positive E. coli. Urine culture no growth. Blood cultures positive E. coli. PHYSICAL EXAMINATION: This is a 58-year-old white male who is resting quietly in a chair. He appears chronically ill. He is in no acute distress. His skin is warm and dry. HEENT: Normocephalic, atraumatic. Conjunctivae are pale. Mucous membranes are moist. Neck: Supple. Trachea midline. No evidence of JVD. Cardiovascular: Regular rate and rhythm, without murmur or gallop. Lungs: Clear to auscultation bilaterally with equal excursion on room air. Abdomen: Soft, protuberant, slight tenderness noted. PD catheter has been removed. He has midline abdominal dressing and a right upper quadrant dressing that are both dry and intact, no residual or shadow drainage present. Genitourinary: Not inspected. Extremities: No clubbing, cyanosis or edema. Neurological: Alert and oriented x 3. ASSESSMENT AND PLAN: 1. Chronic kidney disease Stage 5D. The patient has acute peritonitis with gram-negative rods, positive for E. coli. He remains on Rocephin and vancomycin. He had his PD catheter removed yesterday per Dr. Canales secondary to positive blood cultures. We will leave him free for dialysis for 48 hours with plan for dialysis tunneled catheter placement tomorrow a.m. and to start hemodialysis treatments tomorrow afternoon. The patient states understanding. 2. Electrolytes, acid base balance and anemia. These are low but acceptable. 3. Lymphoma. This is being followed by [facility]. They have indicated possibly starting him on chemotherapy. We have discussed with the patient possible future peritoneal dialysis after this infection has cleared up based upon his dietary nutritional needs. 4. Leukocytosis. Again, the patient has acute peritonitis and sepsis, followed by primary care team and surgery. I would like to thank you for allowing us to follow with this patient. Dictated by SILVIA Gordillo for Leo Chambers MD Face to face encounter, data reviewed, discussed with Lisy Kay on 03/12/19. I agree with the above assessment and plan of care. cc: SILVIA Gordillo MD [facility]
--- NOTE | 2019-03-12 18:11 | PROGRESS NOTE ---
DATE: 03/12/2019 INTERVAL HISTORY: The patient is status post removal of PD catheter yesterday. Reports being comfortable at rest but still with some abdominal pain with movement. No other new complaints. He did have one fever overnight up to 102.3 degrees. REVIEW OF SYSTEMS: Twelve-point review of systems negative except as per interval history. LABORATORY DATA: WBC 15.6, hemoglobin 9.2, hematocrit 28.9, platelets 496,000. Sodium 130, potassium 4.2, bicarbonate 22, BUN 101, creatinine 9.1, glucose 56 to 319. Phosphorus 11.2. VITAL SIGNS: T-max 102.3 degrees, pulse 109, respirations 20, blood pressure 119/70, O2 saturation 97% on room air. OBJECTIVE: General: No acute distress. Vital signs as above. HEENT: Normocephalic, atraumatic. Moist mucous membranes. No cervical adenopathy. Cardiovascular: Regular rate and rhythm. No murmurs, rubs or gallops. Pulmonary: Clear to auscultation bilaterally. No wheezing, rales or rhonchi. Abdomen: Soft. Still with mild diffuse tenderness without rebound or guarding, somewhat improved from previous. Bowel sounds essentially normal. Extremities: Peripheral pulses intact. No clubbing or cyanosis. Neurologic: Cranial nerves grossly intact. No focal deficits identified. Psychiatric: Normal mood and affect. Awake, alert, oriented x3. Skin: No new rashes or lesions identified. Site of former PD catheter heavily bandaged. Bandaging clean, dry, intact. ASSESSMENT AND PLAN: 1. Peritonitis. Patient with diffuse abdominal pain. Peritoneal fluid studies consistent with peritonitis. Also with fever and leukocytosis. Does appear to have had sepsis on admission. Peritoneal dialysis catheter removed yesterday. Some question of whether the source of his peritonitis is the peritoneal dialysis catheter or his large necrotic mass seen on CT. Mass likely associated with his recent diagnosis of lymphoma. Both blood and peritoneal fluid cultures growing out gram-negative rods. Patient had been afebrile but did have one significant fever last night. On ceftazidime, which should be good as his cultures have now finalized to pansensitive Escherichia coli in both blood and peritoneal fluid. Repeat blood cultures pending. If he continues to be febrile or repeat blood cultures remain positive, then we will likely consult Infectious Disease, and further surgical evaluation of this necrotic mass may be required. 2. Lymphoma, necrotic mesenteric mass. Patient with relatively recent diagnosis of lymphoma, not on treatment so far. Primary oncologist is at [facility], but Dr. Whyte seeing here. 3. Endstage renal disease. Has been on peritoneal dialysis but peritoneal dialysis catheter now removed. Will need dialysis access in the near future to continue hemodialysis. Nephrology consulted and following. 4. Diabetes mellitus. Actually had some mild to moderate hypoglycemia overnight. Patient still using his insulin pump. We will discontinue our sliding scale and just use his pump for now. If he continues to have issues, then may have to discontinue pump and use basal bolus insulin subcutaneously.
[2019-03-13] MEDS: TAZIDIME 0.5 GM in NS 50 ML IV SCH (01:14)
[2019-03-13] MEDS: DILAUDID IV PRN ×4 (01:45→22:21)
[2019-03-13] MEDS: HEPARIN SUBQ SCH ×3 (04:20→20:52)
[2019-03-13] MEDS ORDERED: TIGHT: 0.2 ML/HR FOR DIALYSIS MISC PRN (06:36)
[2019-03-13] MEDS ORDERED: HEPARIN IV PRN (06:36)
[2019-03-13] MEDS ORDERED: NS 2,000 ML MISC PRN (06:36)
[2019-03-13] MEDS ORDERED: NS 250 ML ONE (08:02)
[2019-03-13] MEDS ORDERED: XYLOCAINE 1%/EPI 1:100,000 ONE (08:02)
[2019-03-13] MEDS ORDERED: HEPARIN ONE ×2 (08:02)
[2019-03-13 08:23] LABS: BASO# 0.02 X1000 (0.0-0.2); BASO% 0.1 % (0.0-0.8); EOS# 0.15 X1000 (0.0-0.7); EOS% 0.8 % (0.0-10.0); HEMATOCRIT 30.2 % (42.0-52.0); HEMOGLOBIN 9.5 g/dL (14.0-18.0); IMM GRAN# 0.34 X1000 (0.0-0.04); IMM GRAN% 1.9 % (0.0-0.5); LYMPH# 2.69 X1000 (1.2-3.4); LYMPH% 14.9 % (20.5-51.1); MCHC 31.5 g/dL (33-37); MCV 95.3 FL (81-99); MONO# 1.15 X1000 (0.11-0.59); MONO% 6.4 % (1.7-9.3); MPV 10.6 FL (7.4-10.4); NEUT# 13.69 X1000 (1.4-6.5); NEUT% 75.9 % (42.2-75.2); PLT 474 X1000 (130-400); RBC 3.17 XMIL (4.7-6.1); RDW 13.9 % (11.5-14.5); WBC 18.04 X1000 (4.8-10.8)
[2019-03-13 08:43] LABS: ALBUMIN 2.4 g/dL (3.5-5.0); CREATININE 9.5 mg/dL (0.7-1.2); POTASSIUM 4.8 mmol/L (3.5-5.1)
[2019-03-13] MEDS ORDERED: XYLOCAINE-MPF 2% ONE (08:47)
[2019-03-13] MEDS ORDERED: AMIDATE ONE (09:41)
[2019-03-13] MEDS ORDERED: QUELICIN (DOSE) ONE (09:57)
[2019-03-13] MEDS ORDERED: ZOFRAN ONE (09:58)
[2019-03-13] MEDS ORDERED: DILAUDID ONE (10:47)
[2019-03-13] MEDS: MIRALAX PO SCH (11:10)
--- NOTE | 2019-03-13 19:02 | HEMO/ONC CONSULTATION ---
DATE: 03/10/2019 ADMITTING PHYSICIAN: Dr. Mratin Villanueva. REQUESTING PHYSICIAN: Dr. Martin Villanueva. We appreciate this consult. CHIEF COMPLAINT: Low grade B-cell lymphoma. HISTORY OF PRESENT ILLNESS: Mr. 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 The patient is followed by Dr. Feldman of [facility]. The patient has been monitored closely with plans for potential treatment if needed. The patient has been seen regularly in clinic by Dr. Feldman. The patient also carries a history of end-stage renal disease and is managed with continuous abdominal peritoneal dialysis. The patient presented to [facility] Emergency Department secondary to constant diffuse abdominal pain for 3 to 4 hours prior to arrival. He does have a history of peritonitis. The patient also reported nausea, vomiting and diarrhea. Laboratory data in the emergency department revealed leukocytosis with elevated blood glucose and plasma lactate. The patient underwent paracentesis with peritoneal fluid evaluation pending. We are consulted as the patient is well known to Dr. Feldman. PAST MEDICAL HISTORY: 1. Diabetes mellitus type 2 insulin dependent. 2. Neuropathy. 3. Hyperlipidemia. 4. Hypertension. 5. End-stage renal disease on continuous abdominal peritoneal dialysis. 6. Bladder cancer. 7. Testicular cancer. 8. Necrotic mesenteric tumor. PAST SURGICAL HISTORY: 1. Radical retroperitoneal lymph node dissection secondary to testicular cancer. 2. Bladder cancer excision. 3. Right shoulder surgery. 4. Peritoneal dialysis catheter placement. FAMILY HISTORY: Significant for breast cancer in the patient's mother. SOCIAL HISTORY: The patient does not use tobacco, alcohol or illicit drugs. The patient is and lives with his . 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 MEDICATIONS ON ADMISSION: 1. Atorvastatin. 2. Sliding-scale insulin. 3. Omeprazole. 4. Sensipar. 5. Magnesium oxide. 6. Zofran. 7. Calcitriol. ALLERGIES: Penicillin, Levaquin and tramadol. REVIEW OF SYSTEMS: A 14-point review of systems was obtained and is negative except for mentioned in HPI. PHYSICAL EXAMINATION: General: Mr. Naveed Agosto is a pleasant, but ill-appearing, 58-year-old male, lying supine in bed in no immediate distress. Vital Signs: Temperature 98.9 degrees, blood pressure 92/61, heart rate 106, respirations 19, O2 saturation is 95% on nasal cannula O2. HEENT: Normocephalic, atraumatic. Mucous membranes are pink and moist. Sclerae anicteric. Extraocular movements intact. Neck: Supple. Lungs: Clear to auscultation bilaterally. Chest expansion equal bilaterally. Cardiovascular: S1, S2 is heard. The patient is tachycardic. Abdomen: Distended. Tender to palpation throughout and tense. Bowel sounds are decreased throughout. No rebound or guarding is noted. Extremities: Without clubbing, cyanosis, or edema. Dermatologic: No rashes, bruises or lesions. Neurologic: The patient is awake, alert, and oriented x3. He has no focal deficit. LABORATORY DATA: Hemoglobin 11.5, hematocrit 35.7, white blood cell count is 15.84, platelets 616,000. ANC 13.18, ALC, 1.57, sodium 138, potassium 4.3, chloride 97, CO2 is 17, BUN 103, creatinine 8.1, glucose 189, bilirubin 0.27, alkaline phosphatase 177, AST 59, ALT 74, lipase is 34. Culture of peritoneal fluid is currently pending. IMAGING STUDIES: CT of the abdomen and pelvis reveals an increase of the necrotic mesenteric mass- like lesion with surrounding mesenteric lymphadenopathy. ASSESSMENT AND PLAN: 1. Low grade B-cell lymphoma favoring chronic lymphocytic leukemia/small lymphocytic lymphoma. Dr. Whyte will discuss the patient's case with Dr. Feldman. The patient will need treatment when appropriate; however, the patient's acute illness will prevent treatment at this time. We will continue to follow and schedule followup as soon as possible for initiation of treatment. 2. End-stage renal disease on continuous abdominal peritoneal dialysis. 3. Probable peritonitis. The patient is currently on antibiotics. 4. We will follow along with you and make further recommendations pending outcomes. The above reflects the history exam, assessment and plan of Dr. Whyte. Dictated by SILVIA Alvarez for Harpreet Whyte MD cc: SILVIA Alvarez MD Amy Stubbs, MD
--- NOTE | 2019-03-13 20:25 | OPERATIVE NOTE ---
PROCEDURE DATE: 03/13/2019 PROCEDURE PERFORMED: Right internal jugular vein tunneled catheter placement using ultrasound and fluoroscopic guidance. SURGEON: Bryson Canales MD. PREOPERATIVE DIAGNOSIS: Chronic kidney disease 5. POSTOPERATIVE DIAGNOSIS: Chronic kidney disease 5. INDICATIONS: A 58-year-old who had a PD catheter removed 2 days ago for peritonitis and bacteremia. He is now for tunnel catheter placement for hemodialysis. DESCRIPTION OF PROCEDURE: Satisfactory general anesthesia was achieved. An LMA was placed. The right side of the neck and upper anterior chest were prepped and draped in a sterile fashion. We chose a 24 cm precurved catheter. We imaged the right internal jugular vein. We anesthetized the skin and then made a stab incision we accessed the internal jugular vein without difficulty and passed the guidewire under fluoroscopic guidance into the superior vena cava. We anesthetized the skin below the clavicle. We incised the skin, then tunneled the 24 cm pre-curved glide path catheter from the subcostal incision up to the neck incision. We then dilated the tract sequentially and then passed the dilator and introducer sheath over the guidewire. We removed the dilator and guidewire, and introduced the glide path catheter into the superior vena cava to the right atrium. We were able to aspirate and irrigate each limb easily using Hep-Lock. We then flushed each lumen with strong heparin at 5000 units/mL 1.9 mL in 1 lumen 1.9 mL in the other lumen. We secured the flange to the skin with 2-0 nylon. We then closed the skin of the neck incision with a 4-0 Polysorb subcuticular stitch. Steri-Strips, Telfa and sterile OpSite was applied at the neck incision in the subcostal exit site as well. He tolerated it well and was sent to the room recovery room in satisfactory condition. cc: Bryson Canales MD
--- NOTE | 2019-03-13 20:58 | NEPHROLOGY PROGRESS NOTE ---
DATE: 03/13/2019 SUBJECTIVE: Patient to go today for a tunneled catheter placement. OBJECTIVE: Vital Signs: Temperature 98.5 degrees, pulse 101, respiratory rate 18, blood pressure 133/65. Intake 775 mL. Output not measured. PHYSICAL EXAMINATION: General: Chronically ill-appearing, middle-aged gentleman resting in bed, awake and alert, no acute distress. HEENT: Normocephalic, atraumatic. YAW. He does have glasses on. Neck: Supple. No JVD. Cardiovascular: Regular rate and rhythm. No murmur. Pulmonary: Clear bilaterally. Equal excursion on room air. Abdomen: Soft. Positive bowel sounds. Does have slight tenderness where the PD catheter was previously. : Not inspected. Voiding. Extremities: No clubbing, cyanosis, or edema. Integumentary: Skin is warm and dry. LAB DATA: Pending. ASSESSMENT AND PLAN: Chronic kidney disease 5D with peritonitis. Patient is on appropriately dosed antibiotics. We are leaving him off of the peritoneal dialysis, and will continue with hemodialysis for the immediate time. The patient will be following up with his oncologist regarding his abdominal mass. From a renal perspective, once we have the patient established for outpatient hemodialysis, he could be discharged at the discretion of the Primary. Dictated by SILVIA Hoyt for Leo Chambers MD Face to face encounter, data reviewed, discussed with Mayo Chung on 03/13/19. I agree with the above assessment and plan of care. cc: Leo Chambers MD [facility]
[2019-03-14] MEDS ORDERED: G.I. COCKTAIL PO ONE (01:27)
[2019-03-14] MEDS: TAZIDIME 0.5 GM in NS 50 ML IV SCH (01:45)
--- NOTE | 2019-03-14 04:11 | PROGRESS NOTE ---
DATE: 03/13/2019 INTERVAL HISTORY: The patient is status post placement of dialysis catheter in the right upper chest earlier today. Seen on dialysis. Reports gradual improvement in abdominal pain with movement, and near resolution of abdominal tenderness. No new complaints. Afebrile for greater than 24 hours at this point. REVIEW OF SYSTEMS: Twelve point review of systems negative except as per interval history. LABORATORY: WBC 18.0, hemoglobin 9.5, hematocrit 30.2, and platelets 474,000. Sodium 132, potassium 4.8, bicarb 21, BUN 104, creatinine 9.5, and glucose 56 to 111. VITALS: T-max 99.5 degrees, pulse 109, respirations 19, blood pressure 115/65, and O2 saturation 96% on room air. PHYSICAL EXAMINATION: General: No acute distress. Vitals: As above. HEENT: Normocephalic, atraumatic. Moist mucous membranes. No cervical adenopathy. Cardiovascular: Regular rate and rhythm. No murmurs, rubs or gallops. Dialysis access catheter in right upper chest. Pulmonary: Clear to auscultation bilaterally. No wheezing, rales, or rhonchi. Abdomen: Essentially nontender at this point. Minimally distended. No rebound or guarding. Bowel sounds close to normal. Extremities: Peripheral pulses intact. No clubbing or cyanosis. Neurologic: Cranial nerves grossly intact. No focal deficits. Psychiatric: Normal mood and affect. Awake, alert, and oriented x3. Skin: No new rashes or lesions identified. Site of former PD catheter remains bandaged. ASSESSMENT AND PLAN: 1. Peritonitis, sepsis. Patient with diffuse abdominal pain on admission. Peritoneal fluid studies consistent with peritonitis. Also, fever and leukocytosis. PD cath removed 03/11. Some uncertainty as to whether the source of his peritonitis was the PD catheter or the large necrotic mass seen on CT. Mass likely associated with recent diagnosis of lymphoma as below. Oncology following and discussing whether or not to initiate chemotherapy. Both initial blood and peritoneal fluid cultures growing pansensitive E. Coli. Repeat blood cultures no growth to date on ceftazidime which should adequately treat this infection. No further fevers so we appear to be doing okay right now although he has had some increase in his leukocytosis. Continue monitoring closely. If there is any worsening or recurrence, we will likely consult ID. If he continues to improve, then may be able to hold the course. 2. Lymphoma, necrotic mesenteric mass. The patient with relative recent diagnosis of lymphoma, not on treatment so far. Primary oncologist is at [facility]. Dr. Whyte following here. 3. End-stage renal disease. PD catheter removed. Temporary dialysis catheter placed in right upper chest this morning. Getting dialysis today. Nephrology following. 4. Diabetes mellitus. Occasional mild hypoglycemia, but overall good control with the patient's insulin pump. Continue to monitor.
[2019-03-14] MEDS: ZOFRAN IV PRN ×3 (04:36→23:30)
[2019-03-14] MEDS: PRILOSEC PO SCH (06:16)
[2019-03-14] MEDS: HEPARIN SUBQ SCH ×3 (06:17→20:42)
[2019-03-14 07:47] LABS: BASO# 0.03 X1000 (0.0-0.2); BASO% 0.2 % (0.0-0.8); EOS# 0.09 X1000 (0.0-0.7); EOS% 0.5 % (0.0-10.0); HEMATOCRIT 27.8 % (42.0-52.0); HEMOGLOBIN 8.7 g/dL (14.0-18.0); IMM GRAN# 0.72 X1000 (0.0-0.04); LYMPH# 2.61 X1000 (1.2-3.4); LYMPH% 14.6 % (20.5-51.1); MCH 30.3 PG (27-31); MCHC 31.3 g/dL (33-37); MCV 96.9 FL (81-99); MONO# 1.34 X1000 (0.11-0.59); MONO% 7.5 % (1.7-9.3); MPV 10.5 FL (7.4-10.4); NEUT# 13.11 X1000 (1.4-6.5); NEUT% 73.2 % (42.2-75.2); PLT 411 X1000 (130-400); RBC 2.87 XMIL (4.7-6.1); RDW 13.5 % (11.5-14.5)
[2019-03-14 08:26] LABS: ALBUMIN 2.3 g/dL (3.5-5.0); CALCIUM 9.2 mg/dL (8.8-10.2); CREATININE 6.6 mg/dL (0.7-1.2); PHOSPHORUS 8.4 mg/dL (2.7-4.5); POTASSIUM 4.9 mmol/L (3.5-5.1)
[2019-03-14] MEDS ORDERED: NS 2,000 ML MISC PRN (08:43)
[2019-03-14] MEDS ORDERED: TIGHT: 0.2 ML/HR FOR DIALYSIS MISC PRN (08:43)
[2019-03-14] MEDS ORDERED: HEPARIN IV PRN (08:43)
[2019-03-14] MEDS: MIRALAX PO SCH (08:52)
[2019-03-14] MEDS: DILAUDID IV PRN ×3 (08:53→18:14)
[2019-03-14] MEDS ORDERED: DESYREL PO PRN (12:33)
[2019-03-14] MEDS ORDERED: LEVSIN PO PRN (12:33)
[2019-03-14 13:18] LABS: HEPATITIS PROFILE ACUTE SEE COMMENTS
--- NOTE | 2019-03-14 20:45 | PROGRESS NOTE ---
DATE: 03/14/2019 INTERVAL HISTORY: The patient continues to have gradual improvement in his abdominal pain with motion. No further abdominal tenderness. Remains afebrile. Getting dialysis are seen on dialysis, which was performed again today to get him on his schedule which is to be Saturday, , and Saturday. Complains only of insomnia. No acute events overnight. REVIEW OF SYSTEMS: Twelve point review of systems negative except as per interval history. LABS: WBC 17.9, hemoglobin 8.7, hematocrit 27.8, platelets 411,000. Sodium 134, potassium 4.9, bicarb 27, BUN 62, creatinine 6.6, glucose 52 to 252. VITALS: T-max 99.5 degrees, pulse 105, respirations 19, blood pressure 112/63, O2 saturation 98 on 2 L by nasal cannula. PHYSICAL EXAMINATION: General: No acute distress. Vitals: As above. HEENT: Normocephalic, atraumatic. Moist mucous membranes. No cervical adenopathy. Cardiovascular: Regular rate and rhythm. No murmurs, rubs, or gallops noted. Dialysis access catheter in right upper chest with no sign of infection. Pulmonary: Clear to auscultation bilaterally. No wheezing, rales, or rhonchi. Abdomen: Nontender. Remains mildly distended. No rebound or guarding. Bowel sounds normal. Extremities: Peripheral pulses intact. No clubbing, cyanosis. Neurologic: Cranial nerves grossly intact. No focal deficits. Psychiatric: Normal mood and affect. Awake, alert, oriented x3. Skin: No new rashes or lesions identified. Former site of PD catheter remains bandaged. ASSESSMENT AND PLAN: 1. Peritonitis, sepsis. Patient with diffuse abdominal pain on admission. Peritoneal fluid consistent with peritonitis. Initial blood culture and peritoneal fluid culture grew pansensitive E. coli. Repeat blood cultures negative. On Ceptaz which should adequately treat this infection. No further fever. Leukocytosis not improved as much as I would like, but given patient's underlying diagnosis of CLL and new lymphoma, it may not come down all the way. If it remains stable, may be able to discharge tomorrow. Patient allergic to Levaquin so may try to see if we can dose him with antibiotics with dialysis. 2. CLL, lymphoma, necrotic mesenteric mass. Patient with long-standing diagnosis of CLL. Relatively recent diagnosis of new lymphoma. Not on treatment so far. Primary oncologist at [facility]. Dr. Whyte following here. 3. End-stage renal disease, PD catheter removed, temporary dialysis catheter in place and status post dialysis yesterday and today. Nephrology following. 4. Diabetes mellitus. Occasional mild hypoglycemia, slightly worse overnight. Discussed with patient. He will bolus less insulin through his pump at dinner. Monitor.
--- NOTE | 2019-03-14 22:02 | NEPHROLOGY PROGRESS NOTE ---
DATE: 03/14/2019 SUBJECTIVE: Patient is resting in bed. He states that other than he has been unable to sleep and had terrible insomnia, he has done okay. Dialysis yesterday with no trouble. PHYSICAL EXAMINATION: Vital Signs: Temperature 99 degrees, pulse 113, respiratory rate 20, blood pressure 118/67. Intake 1 L, output 2 L. General: Middle-aged gentleman resting in bed. He is awake and alert, and he is in no acute distress. HEENT: Normocephalic, atraumatic. YAW. Neck: Supple. No JVD. Cardiovascular: Regular rate and rhythm. Pulmonary: Clear bilaterally. Abdomen: Soft with positive bowel sounds. Genitourinary: Not inspected. Voiding. Extremities: No clubbing, cyanosis. integumentary: Skin is warm and dry. Tunnel dialysis catheter site to the right upper chest wall insertion site is clean, dry, and intact. LABORATORY DATA: WBC of 17.9, hemoglobin 8.7. Sodium 134, potassium 4.9, CO2 of 27, creatinine 6.6. ASSESSMENT AND PLAN: 1. Chronic kidney disease 5D. Now, on hemodialysis. He will dialyze on a 2K bath/2 L UF removal 3-hour treatment today. Will hold dialysis tomorrow. From a renal perspective, can be discharged. His next dialysis treatment is scheduled for Saturday at the outpatient dialysis clinic in [place]. 2. Insomnia. Please see orders. Dictated by SILVIA Hoyt for Leo Chambers MD cc: Leo Chambers MD
[2019-03-15] MEDS: PHENERGAN IV PRN ×4 (00:49→21:03)
[2019-03-15] MEDS: SODIUM CHLORIDE 0.9% INJ PRN ×3 (00:50→21:02)
[2019-03-15] MEDS: TAZIDIME 0.5 GM in NS 50 ML IV SCH (01:04)
[2019-03-15] MEDS: DILAUDID IV PRN ×4 (01:09→21:02)
[2019-03-15] MEDS: HEPARIN SUBQ SCH ×3 (04:41→20:29)
[2019-03-15] MEDS: PRILOSEC PO SCH (06:38)
[2019-03-15] MEDS: ZOFRAN IV PRN ×2 (06:42→11:23)
[2019-03-15 08:01] LABS: BASO# 0.03 X1000 (0.0-0.2); BASO% 0.1 % (0.0-0.8); EOS# 0.04 X1000 (0.0-0.7); EOS% 0.2 % (0.0-10.0); HEMATOCRIT 30.4 % (42.0-52.0); HEMOGLOBIN 9.2 g/dL (14.0-18.0); IMM GRAN# 0.88 X1000 (0.0-0.04); IMM GRAN% 4.2 % (0.0-0.5); LYMPH# 2.59 X1000 (1.2-3.4); LYMPH% 12.3 % (20.5-51.1); MCH 29.7 PG (27-31); MCHC 30.3 g/dL (33-37); MCV 98.1 FL (81-99); MONO# 1.31 X1000 (0.11-0.59); MONO% 6.2 % (1.7-9.3); MPV 10.3 FL (7.4-10.4); NEUT# 16.26 X1000 (1.4-6.5); RDW 13.9 % (11.5-14.5)
[2019-03-15 08:14] LABS: ALBUMIN 2.3 g/dL (3.5-5.0); CREATININE 5.4 mg/dL (0.7-1.2); PHOSPHORUS 9.1 mg/dL (2.7-4.5); POTASSIUM 4.4 mmol/L (3.5-5.1)
[2019-03-15] MEDS ORDERED: PHENERGAN PR PRN (09:23)
[2019-03-15] MEDS: MIRALAX PO SCH (09:30)
[2019-03-15 09:43] LABS: ANISOCYTOSIS 2+; BANDS 4 % (0-1); LYMPHS 12 % (21-51); MONO 6 % (1-9); PLT 454 X1000 (130-400); SEGS 77 % (42-75)
[2019-03-15 09:44] LABS: WBC 21.11 X1000 (4.8-10.8)
[2019-03-15] MEDS ORDERED: SODIUM CHLORIDE 0.9% INJ SCH (10:15)
[2019-03-15] MEDS: PEPCID IV SCH (11:22)
--- NOTE | 2019-03-15 14:27 | Diag Imaging Result Doc PS360 ---
EXAM: KUB ABDOMEN INDICATION: vomiting, recent PD catheter removal TECHNIQUE: One view COMPARISON: None. FINDINGS: There are numerous metallic clips and metallic mesh coils throughout the abdomen near the midline. There are unremarkable bowel gas and stool patterns. There is no obstructive bowel pattern. There is no evidence of large volume free abdominal gas given the limitations of a supine radiograph. IMPRESSION: No evidence of acute pathology by plain radiograph. Electronically signed by Roberto Blackmon 03/15/2019 2:25 PM
--- NOTE | 2019-03-15 16:08 | PROGRESS NOTE ---
DATE: 03/15/2019 INTERVAL HISTORY: Patient with a sudden onset of nausea and vomiting overnight. Had some initial relief with Zofran but it recurred. He began to have vomiting. Given both Zofran and Phenergan, which again provided temporary relief. Relatively comfortable at the time of my exam but unable to tolerate much in the way of p.o. Denies fever or chills. The patient states that his abdominal pain remains improved. No diarrhea. REVIEW OF SYSTEMS: Twelve point review of systems negative except as per interval history. LABS: WBC 21.1, hemoglobin 9.2, hematocrit 30.4, platelets 454,000. Sodium 142, potassium 4.4, chloride 90, BUN 52, creatinine 5.4, glucose 136 to 209. IMAGING: Abdominal x-ray with no acute pathology. VITALS: T-max 99.4 degrees, pulse 109, respirations 18, blood pressure 114/72, O2 saturation 96% on 2 L by nasal cannula. PHYSICAL EXAMINATION: General: No acute distress. Vitals: As above. HEENT: Normocephalic, atraumatic. Moist mucous membranes. No cervical adenopathy. Cardiovascular: Regular rate and rhythm. No murmurs, rubs, or gallops. Dialysis catheter in the right upper chest. Pulmonary: Clear to auscultation bilaterally. No wheezing, rales, or rhonchi. Abdomen: Nontender, nondistended. Bowel sounds positive. No rebound or guarding. Extremities: Peripheral pulses intact. No clubbing, cyanosis. Neurologic: Cranial nerves grossly intact. No focal deficits. Psychiatric: Asleep but fairly easily arousable. Does fall back asleep easily during exam. Skin: No new rashes or lesions identified. Former site of PD catheter remains bandaged. ASSESSMENT AND PLAN: 1. Peritonitis, sepsis. The patient was with diffuse abdominal pain on admission. Peritoneal fluid consistent with peritonitis. Blood in peritoneal fluid cultures grew pansensitive Escherichia coli. Repeat blood cultures remain negative. On ceftazidime, which should adequately treat. No further fever. Nausea and vomiting overnight and this morning as above, and increased leukocytosis today but difficult to interpret that in the setting of the patient's underlying chronic lymphocytic leukemia and lymphoma. Initially planned on discharging today on oral amoxicillin but given his inability to try to tolerate oral intake, we will continue intravenous antibiotics for now and monitor. 2. Nausea and vomiting of unclear etiology. No fever. No diarrhea. Abdominal x-ray unremarkable. Abdomen benign on exam and patient denying any recurrent abdominal pain. Could be viral gastroenteritis or medication side effect. We will discontinue hyoscyamine and monitor. If symptoms continue, we will likely repeat abdominal CT scan. 3. Chronic lymphocytic leukemia, lymphoma, necrotic mesenteric mass. Patient with longstanding diagnosis of chronic lymphocytic leukemia. Recent diagnosis of lymphoma. Has not started treatment yet. Primary oncologist is at [facility]. Dr. Whyte has been following here. Peritoneal catheter is favored as the source of infection for his peritonitis. The patient does seem to have improved significantly with removal of the peritoneal dialysis catheter and ongoing treatment with antibiotics but if symptoms recur or his gastrointestinal symptoms persist, then may have to re-evaluate. 4. End-stage renal disease. Peritoneal dialysis catheter removed. Temporary dialysis catheter in place in right upper chest and functioning appropriately. Planning on Saturday, , Saturday dialysis after discharge. Nephrology following. 5. Diabetes mellitus. Overall reasonable control on current management. Continue to monitor.
[2019-03-16] MEDS: PEPCID IV SCH (00:21)
[2019-03-16] MEDS: TAZIDIME 0.5 GM in NS 50 ML IV SCH ×2 (00:22→14:17)
[2019-03-16] MEDS: HEPARIN SUBQ SCH (05:09)
[2019-03-16] MEDS: PRILOSEC PO SCH (06:01)
[2019-03-16] MEDS: PHENERGAN IV PRN (06:27)
[2019-03-16] MEDS: DILAUDID IV PRN (06:29)
[2019-03-16 07:17] LABS: HEMATOCRIT 32.8 % (42.0-52.0); HEMOGLOBIN 9.9 g/dL (14.0-18.0); MCHC 30.2 g/dL (33-37); MCV 99.4 FL (81-99); MPV 10.3 FL (7.4-10.4); NEUT% 73.8 % (42.2-75.2); PLT 431 X1000 (130-400); RDW 14.5 % (11.5-14.5); WBC 26.96 X1000 (4.8-10.8)
[2019-03-16 07:18] LABS: BASO# 0.06 X1000 (0.0-0.2); BASO% 0.2 % (0.0-0.8); EOS# 0.22 X1000 (0.0-0.7); EOS% 0.8 % (0.0-10.0); IMM GRAN# 1.14 X1000 (0.0-0.04); IMM GRAN% 4.2 % (0.0-0.5); LYMPH# 4.25 X1000 (1.2-3.4); LYMPH% 15.8 % (20.5-51.1); MONO# 1.41 X1000 (0.11-0.59); MONO% 5.2 % (1.7-9.3); NEUT# 19.88 X1000 (1.4-6.5)
[2019-03-16 07:50] LABS: LYMPHS 16 % (21-51); MONO 6 % (1-9); SEGS 78 % (42-75)
[2019-03-16 08:20] LABS: POTASSIUM 5.1 mmol/L (3.5-5.1)
[2019-03-16 12:31] VITALS: BP 132/70
[2019-03-16] MEDS: MIRALAX PO SCH (12:48)
--- NOTE | 2019-03-16 12:59 | NEPHROLOGY PROGRESS NOTE ---
DATE: 03/16/2019 SUBJECTIVE: Patient had some episodes of nausea and vomiting on Saturday and he was not discharged. He has had no vomiting today and is trying to eat breakfast and denies nausea. OBJECTIVE: Vital Signs: Temperature 98.5 degrees, pulse 98, respiratory rate 18, blood pressure 140/73. Intake 600 mL. Output 50 mL. PHYSICAL EXAMINATION: General: Chronically ill-appearing middle-aged gentleman sitting up in bed. He is awake and alert. He is in no acute distress. HEENT: Normocephalic, atraumatic. YAW. He has glasses in place. Oral mucosa moist. Neck: Supple without JVD. Cardiovascular: Regular rate and rhythm. Pulmonary: He is clear bilaterally. He is on room air. Abdomen: Soft, with positive bowel sounds. Genitourinary: Voiding. Extremities: No clubbing, cyanosis, or edema. Integumentary: Skin is warm and dry. He has a tunneled dialysis catheter in his right upper chest wall. Insertion site clean, dry, and intact. LAB DATA: WBC of 26.9, hemoglobin 9.9, sodium 135, potassium 5.1, CO2 23, BUN 72, creatinine 7, calcium 9. ASSESSMENT AND PLAN: 1. Chronic kidney disease 5D with previous peritonitis, now transitioned over to hemodialysis. We have dialyzed him last week to create a Saturday, , Saturday schedule. His last dialysis was on Saturday. He had no issues. He has a plan for outpatient dialysis in the morning at the [facility]. If he does remain in the hospital, we will dialyze him here at that time. He has no absolute indications for treatment today. 2. Sepsis, peritonitis. Plan was to transition him over to oral antibiotics on discharge. With his nausea vomiting yesterday they held that. Hopefully that will be able to achieve that goal. Today. 3. CLL necrotic mesenteric mass followed by Oncology. He has been seen by Dr. Whyte. Dictated by SILVIA Hoyt for Leo Chambers MD Face to face encounter, data reviewed, discussed with Mayo Chung on 03/16/19. I agree with the above assessment and plan of care. cc: Leo Chambers MD [facility]
--- NOTE | 2019-03-17 13:04 | DISCHARGE SUMMARY ---
ADMISSION DATE: 03/10/2019 DISCHARGE DATE: 03/16/2019 CONSULTS: Nephrology, Dr. Chambers. Surgery, Dr. Canales. Hematology/Oncology, Dr. Whyte. PROCEDURES: Removal of peritoneal dialysis catheter. PERTINENT STUDIES: CT abdomen and pelvis showing enlargement of necrotic mesenteric mass with internal air-fluid levels and worsening of surrounding mesenteric lymphadenopathy. Small droplets of extraluminal free gas in the abdomen, favored to be related to peritoneal dialysis. Peritoneal fluid studies with WBCs 200,000 with 91% polynuclear WBCs. Initial blood culture and initial peritoneal fluid culture: Pansensitive E coli. Repeat blood cultures: No growth. Urine culture: No growth. DISCHARGE DIAGNOSES: 1. Peritonitis. 2. Sepsis. 3. Chronic lymphocytic leukemia. 4. Lymphoma. 5. Chronic mesenteric mass. 6. End-stage renal disease. 7. Diabetes. 8. Nausea and vomiting. The patient presented initially with diffuse abdominal pain for 3 to 4 hours prior to arrival. He had also complained of nausea/vomiting, diarrhea. Zofran did not help. Initial workup showed leukocytosis and elevated lactate. Peritoneal fluid and culture was consistent with peritonitis. He was started on antibiotics and then changed to ceftazidime once culture data was available. He was continued on this for the duration of his hospitalization. Initial blood and fluid cultures were both positive for pansensitive E coli. Surgery was contacted, and they removed his peritoneal dialysis catheter as this was favored to be the source of his infection. He was left without a line for a couple days, and then a temporary dialysis catheter was placed in the right upper chest. He had successful hemodialysis through this. He was set up for Saturday, , Saturday hemodialysis as an outpatient by Nephrology. There was some concern that this necrotic mesenteric mass might be involved, but he did seem to do well with removal of the PD catheter and treatment with Ceptaz. The day prior to admission, he did have some nausea and vomiting which continued for most of the day. It was helped, but not entirely relieved by Zofran and Phenergan. Abdominal x-ray was obtained, which was unremarkable. The next day, we were considering repeat CT, but his symptoms resolved and did not reoccur. The patient received a total of 7 days of IV antibiotics which would theoretically be sufficient for treatment of a non-ESBL E coli, but because of his comorbidities, including lymphoma and end-stage renal disease, it was decided to continue antibiotics for an additional 7 days with p.o. Omnicef. The patient discharging home to follow up with Oncology, PCP, and Nephrology. DISCHARGE VITAL SIGNS: Temperature 97.5 degrees, pulse 98, respirations 18, blood pressure 140/73, O2 saturation 97% on room air. DISCHARGE DIET: Renal, diabetic. DISCHARGE MEDICATIONS: Insulin pump, atorvastatin 20 mg p.o. at bedtime, Zofran 4 mg p.o. p.r.n., Sensipar 1 tablet daily, trazodone 50 mg p.o. at bedtime as needed, omeprazole 40 mg p.o. at bedtime, cefdinir 300 mg p.o. every other day in the evening or after dialysis, Phenergan 50 mg suppository q.4 h. p.r.n. FOLLOW-UP AND PLAN: Patient discharging home on Omnicef. Outpatient dialysis Saturday, , Saturday. Follow up with PCP, Oncology, and Nephrology. Return to care immediately if worsening abdominal pain, fever, or vomiting develop.
== END 2019-03-16 15:03 | disposition home or self-care (01) | DRG 981 ==
LOC: ED 01:33 → SUATTDRO 05:03 → 3N 05:03
PROVIDERS: ATTEND Internal Medicine
CPT/HCPCS: 74000; 74018; 74176; 77001; 80048; 80053; 80069; 80074; 81001; 82150; 82232; 82948; 83036; 83605; 83615; 83690; 83735; 84443; 85025; 87040; 87070; 87077; 87088; 87186; 87205; 88300; 89051; 94761; A9270; C1750; J0330; J0696; J0713; J1170; J1644; J2405; J2543; J2550; J3370; J7050; S0028; XXXXX